=== PATIENT | female | born 1940 | race Caucasian/White ===

== ENCOUNTER 2016-09-22 15:36 | Inpatient (IN) ==
[2016-09-22] MEDS ORDERED: *HR* Dextrose 50 % in Water (Syg) 50 ML SYRINGE IVP PRN (16:20)
[2016-09-22] MEDS ORDERED: D5% in Water 1,000 ML IV PRN (16:20)
[2016-09-22] MEDS ORDERED: Dextrose Gel 15 GM PO PRN ×2 (16:20)
--- NOTE | 2016-09-22 16:21 | Internal Med History&Physical ---
Date of Encounter: 09/22/16 Time of Encounter: 16:19 Assessment and Plan (1) CVA (cerebral vascular accident) Current visit: Yes Status: Acute Patient subsequently had a CVA. Qualifiers: Qualified Code(s): I63.9 - Cerebral infarction, unspecified (2) Total knee replacement status Current visit: Yes Status: Acute Patient had a right total knee replacement for osteoarthritis Qualifiers: Laterality: right Qualified Code(s): Z96.651 - Presence of right artificial knee joint Internal Medicine - H&P: HPI Chief complaint: Patient had a right total knee replacement and then apparently a CVA. So s Admitted From: Hospital to Hospital Transfer Plans for Post Hospital Care: Home History of present illness: Ms. Bartholomew is a 76 year old female Patient's here for total knee replacement along with recent CVA. Past Med Surg Social Fam HX - Past Medical History Medical history: arthritis, CVA, diabetes, hypertension, other Psychiatric history: no psych history - Past Surgical History Surgical History: hysterectomy, knee replacement - Social History Smoking Status: Never smoker Alcohol use: none Internal Medicine - H&P: Meds Amlodipine [Norvasc] 5 mg PO DAILY 09/22/16 [History] Aspirin 325 mg PO DAILY 09/22/16 [History] Desvenlafaxine Succinate [Pristiq ER] 50 mg PO DAILY 09/22/16 [History] Fenofibrate [Lofibra] 160 mg PO DAILY 09/22/16 [History] GlipiZIDE [Glucotrol] 5 mg PO HS 09/22/16 [History] GlipiZIDE [Glucotrol] 10 mg PO 0800 09/22/16 [History] Insulin DETEMIR [Levemir] 30 unit SQ HS 09/22/16 [History] Lisinopril [Zestril] 10 mg PO DAILY 09/22/16 [History] Metformin [Glucophage] 500 mg PO BIDWM 09/22/16 [History] OxyCODONE/APAP 7.5/325 [Percocet 7.5/325 MG] 1 each PO Q4HR PRN 09/22/16 [ History] Polyethylene Glycol 3350 [MiraLAX Powder Bulk 17.9 Oz] 17 gm PO DAILY 09/22/16 [ History] Potassium Chloride [Klor-Con 10] 10 meq PO BID 09/22/16 [History] Sennosides/Docusate Sodium [Senna Plus] 2 each PO DAILY 09/22/16 [History] Simvastatin [Zocor] 20 mg PO HS 09/22/16 [History] Allergies Sulfa (Sulfonamide Antibiotics) Allergy (Verified 09/22/16 16:17) Rash All Systems PM: A 10-system review of systems was performed and is negative for pertinent findings except as documented above in the HPI. - Constitutional Vitals: Temp Pulse Resp BP Pulse Ox 97.1 F L 70 16 179/69 91 L 09/22/16 15:52 09/22/16 15:52 09/22/16 15:52 09/22/16 15:52 09/22/16 15:52 - Head Head exam: Present: atraumatic, normal inspection, normocephalic - Neck Neck exam general surgery: Present: supple, trachea midline. Absent: lymphadenopathy - Respiratory Respiratory exam: Present: CTAB. Absent: accessory muscle use, rales, rhonchi, wheezes - Cardiovascular Cardiovascular exam: Present: RRR, +S1, +S2. Absent: diastolic murmur, gallop, rubs, systolic murmur Internal Med - H&P Results - Labs Labs: Pending
[2016-09-22] MEDS: *HR* OxyCODONE/APAP 7.5/325 TABLET PO PRN ×2 (17:25→21:30)
[2016-09-22] MEDS: *HR* Metformin 500 MG TABLET PO SCH (17:25)
[2016-09-22] MEDS: Insulin LISPRO 300 UNITS/3 ML VIAL SQ SCH ×2 (17:26→21:28)
[2016-09-22] MEDS ORDERED: NON-FORMULARY MEDICATION 1 EACH EACH (Insulin Detemir 30 UNIT) SQ SCH (21:00)
[2016-09-22] MEDS ORDERED: Insulin DETEMIR 100 UNIT/ML per UNIT SQ ONE (21:00)
[2016-09-22] MEDS: *HR* GlipiZIDE 5 MG TABLET PO SCH (21:28)
[2016-09-23] MEDS: *HR* OxyCODONE/APAP 7.5/325 TABLET PO PRN ×5 (02:27→20:39)
[2016-09-23 05:34] LABS: INR 1.3; Prothrombin Time 13.7 Seconds (9.4-12.1)
[2016-09-23 05:36] LABS: Basophils % 0.4 %; Eosinophils # 0.7 K/mcL (0.0-0.6); Eosinophils % 7.5 %; Hematocrit 26.8 % (35.3-44.9); Hemoglobin 8.3 g/dL (11.5-15.4); Immature Granulocytes % 0.8 % (0-4); Lymphocytes # 1.9 K/mcL (0.6-4.6); Lymphocytes % 19.9 %; Mean Corpuscular Hemoglobin 27.4 pg (28.0-33.3); Mean Corpuscular Volume 88.4 fL (83.0-100.0); Mean Platelet Volume 8.8 fL (9.4-12.4); Monocytes # 0.7 K/mcL (0.0-1.3); Monocytes % 7.4 %; Neutrophils # 6.2 K/mcL (1.6-8.9); Platelet Count 431 K/mcL (140-400); Red Blood Count 3.03 M/mcL (3.82-4.97); Red Cell Distribution Width 13.2 % (11.5-14.5)
[2016-09-23 05:46] LABS: BUN/Creatinine Ratio 21 (6-26); Blood Urea Nitrogen 18 mg/dL (7-20); Carbon Dioxide 25 mEq/L (19-29); Chloride 104 mEq/L (98-109); Glucose 128 mg/dL (70-99); Osmolality,Calculated 292 (280-300); Potassium 4.2 mEq/L (3.5-4.5); Sodium 139 mEq/L (136-145); eGFR For African Americans > 60 (> 60); eGFR For Non-African Americans > 60 (> 60)
[2016-09-23] MEDS: Ondansetron ODT 4 MG TAB.RAPDIS SL PRN (08:27)
[2016-09-23] MEDS: Insulin LISPRO 300 UNITS/3 ML VIAL SQ SCH ×4 (08:29→21:28)
[2016-09-23] MEDS: *HR* Metformin 500 MG TABLET PO SCH ×2 (09:51→17:55)
[2016-09-23] MEDS: *HR* GlipiZIDE 5 MG TABLET PO SCH ×2 (09:51→20:39)
[2016-09-23] MEDS: Sennosides/Docusate Sodium TABLET PO SCH (09:51)
[2016-09-23] MEDS: Fenofibrate 54 MG TABLET PO SCH (09:51)
[2016-09-23] MEDS: Aspirin 325 MG TABLET PO SCH (09:51)
[2016-09-23] MEDS: (Desvenlafaxine Succinate [Pristiq] 50 MG) PO SCH (09:52)
[2016-09-23] MEDS: Polyethylene Glycol 3350 255 GM POWDER PO SCH (09:53)
--- NOTE | 2016-09-23 11:30 | Internal Med Progress Note ---
Date of Encounter: 09/23/16 Time of Encounter: 11:28 - Assessment and plan (1) CVA (cerebral vascular accident) Current Visit: Yes Status: Acute Assessment and plan: Residual generalized weakness with right facial droop. PTOT to work on improving balance, gait, transfer and ADL. Qualifiers: CVA mechanism: unspecified Qualified Code(s): I63.9 - Cerebral infarction, unspecified (2) Diabetes Current Visit: Yes Status: Acute Assessment and plan: Accu-Chek 148 today. Qualifiers: Diabetes mellitus type: type 2 Diabetes mellitus complication status: with circulatory complication Diabetes mellitus complication detail: with other circulatory complications Diabetes mellitus buttermaker helper insulin use: with buttermaker helper use Qualified Code(s): E11.59 - Type 2 diabetes mellitus with other circulatory complications; Z79.4 - buttermaker helper (current) use of insulin - Time Spent With Patient less than 15 minutes - Subjective Interval history: Still complains of generalized weakness. Complains of nausea earlier. Zofran given. Complains of constipation. Requesting Mag citrait. - Constitutional Vitals: Temp Pulse Resp BP Pulse Ox 97.6 F 75 18 135/80 91 L 09/23/16 06:54 09/23/16 06:54 09/23/16 06:54 09/23/16 06:54 09/23/16 06:54 General appearance: Present: A&O X 2, pleasant, no acute distress - Respiratory Respiratory exam: Present: CTAB. Absent: accessory muscle use, rales, rhonchi, wheezes - Cardiovascular Cardiovascular exam: Present: RRR, +S1, +S2. Absent: diastolic murmur, gallop, rubs, systolic murmur - GI/Abdominal GI/Abdominal exam: Present: normal bowel sounds, soft, no peritoneal signs. Absent: distended, tenderness - Extremities Exam Extremities exam: Present: warm, radial pulses palpable and symetrical. Absent : calf tenderness, cyanotic, pedal edema - Neurological Exam Neurological exam: Present: facial droop. Absent: CN II-XII intact - Skin Skin exam: Present: dry, intact Internal Medicine: Result - Labs CBC & Chem 7: 09/23/16 05:20 09/23/16 05:20 Labs: Short CBC 09/23/16 Range/Units 05:20 WBC 9.8 (4.3-11.1) K/mcL Hgb 8.3 L (11.5-15.4) g/dL Hct 26.8 L (35.3-44.9) % Plt Count 431 H (140-400) K/mcL Neutrophils # 6.2 (1.6-8.9) K/mcL BMP 09/23/16 05:20 Sodium 139 Potassium 4.2 Chloride 104 Carbon Dioxide 25 BUN 18 Creatinine 0.86 Glucose 128 H Calcium 9.0 - ABG Interpretation ABG results: PT/INR, D-dimer PT 13.7 Seconds (9.4-12.1) H 09/23/16 05:20 - VTE Documentation of Mechanical Device: Graduated compression elastic hosiery Consult Discharge Plan - Plan Referrals: Ashly Cho MD [Primary Care Provider] -
[2016-09-23] MEDS: Insulin DETEMIR 100 UNIT/ML X5UNITS SQ SCH (20:39)
--- NOTE | 2016-09-24 01:46 | Internal Med Progress Note ---
Date of Encounter: 09/24/16 Time of Encounter: 09:02 - Assessment and plan (1) CVA (cerebral vascular accident) Current Visit: Yes Status: Acute Assessment and plan: Residual generalized weakness with right facial droop. PTOT to work on improving balance, gait, transfer and ADL. Qualifiers: CVA mechanism: unspecified Qualified Code(s): I63.9 - Cerebral infarction, unspecified (2) Diabetes Current Visit: Yes Status: Chronic Assessment and plan: Accu-Chek 130today. Qualifiers: Diabetes mellitus type: type 2 Diabetes mellitus complication status: with circulatory complication Diabetes mellitus complication detail: with other circulatory complications Diabetes mellitus shelter insulin use: with shelter use Qualified Code(s): E11.59 - Type 2 diabetes mellitus with other circulatory complications; Z79.4 - longterm (current) use of insulin - Time Spent With Patient less than 15 minutes - Subjective Interval history: Still complains of generalized weakness. His slightly better today. Had good result with mag site trait. Large bowel movement after. - Constitutional Vitals: Temp Pulse Resp BP Pulse Ox 97.9 F 84 18 144/63 94 L 09/23/16 18:42 09/23/16 18:42 09/23/16 18:42 09/23/16 18:42 09/23/16 18:42 General appearance: Present: A&O X 2, pleasant, no acute distress - Respiratory Respiratory exam: Present: CTAB. Absent: accessory muscle use, rales, rhonchi, wheezes - Cardiovascular Cardiovascular exam: Present: RRR, +S1, +S2. Absent: diastolic murmur, gallop, rubs, systolic murmur - GI/Abdominal GI/Abdominal exam: Present: normal bowel sounds, soft, no peritoneal signs. Absent: distended, tenderness - Extremities Exam Extremities exam: Present: warm, radial pulses palpable and symetrical. Absent : calf tenderness, cyanotic, pedal edema Internal Medicine: Result - Labs CBC & Chem 7: 09/23/16 05:20 09/23/16 05:20 Labs: Short CBC 09/23/16 Range/Units 05:20 WBC 9.8 (4.3-11.1) K/mcL Hgb 8.3 L (11.5-15.4) g/dL Hct 26.8 L (35.3-44.9) % Plt Count 431 H (140-400) K/mcL Neutrophils # 6.2 (1.6-8.9) K/mcL BMP 09/23/16 05:20 Sodium 139 Potassium 4.2 Chloride 104 Carbon Dioxide 25 BUN 18 Creatinine 0.86 Glucose 128 H Calcium 9.0 - ABG Interpretation ABG results: PT/INR, D-dimer PT 13.7 Seconds (9.4-12.1) H 09/23/16 05:20 - VTE Documentation of Mechanical Device: Graduated compression elastic hosiery Consult Discharge Plan - Plan Referrals: Ashly Cho MD [Primary Care Provider] -
[2016-09-24] MEDS: *HR* OxyCODONE/APAP 7.5/325 TABLET PO PRN ×5 (04:57→21:51)
[2016-09-24] MEDS: Fenofibrate 54 MG TABLET PO SCH (09:00)
[2016-09-24] MEDS: Sennosides/Docusate Sodium TABLET PO SCH (09:00)
[2016-09-24] MEDS: *HR* GlipiZIDE 5 MG TABLET PO SCH ×2 (09:00→21:16)
[2016-09-24] MEDS: *HR* Metformin 500 MG TABLET PO SCH ×2 (09:00→17:43)
[2016-09-24] MEDS: Aspirin 325 MG TABLET PO SCH (09:00)
[2016-09-24] MEDS: Insulin LISPRO 300 UNITS/3 ML VIAL SQ SCH ×4 (09:01→21:00)
[2016-09-24] MEDS: (Desvenlafaxine Succinate [Pristiq] 50 MG) PO SCH (09:01)
[2016-09-24] MEDS: Polyethylene Glycol 3350 255 GM POWDER PO SCH (09:02)
[2016-09-24] MEDS: Insulin DETEMIR 100 UNIT/ML X5UNITS SQ SCH (21:17)
[2016-09-25] MEDS: *HR* OxyCODONE/APAP 7.5/325 TABLET PO PRN ×5 (01:47→20:34)
[2016-09-25 05:46] LABS: Basophils # 0.1 K/mcL (0.0-0.2); Basophils % 0.6 %; Eosinophils # 0.7 K/mcL (0.0-0.6); Eosinophils % 6.1 %; Hemoglobin 8.5 g/dL (11.5-15.4); Immature Granulocytes % 0.6 % (0-4); Lymphocytes # 2.5 K/mcL (0.6-4.6); Lymphocytes % 23.3 %; Mean Corpuscular HGB Conc 31.5 g/dL (31.6-35.5); Mean Corpuscular Hemoglobin 27.9 pg (28.0-33.3); Mean Corpuscular Volume 88.5 fL (83.0-100.0); Mean Platelet Volume 8.9 fL (9.4-12.4); Monocytes # 0.8 K/mcL (0.0-1.3); Monocytes % 7.5 %; Neutrophils # 6.7 K/mcL (1.6-8.9); Platelet Count 444 K/mcL (140-400); Red Blood Count 3.05 M/mcL (3.82-4.97); Red Cell Distribution Width 14.2 % (11.5-14.5); Segmented Neutrophils % 61.9 %
[2016-09-25 05:56] LABS: BUN/Creatinine Ratio 22 (6-26); Blood Urea Nitrogen 19 mg/dL (7-20); Calcium 9.4 mg/dL (8.6-10.8); Carbon Dioxide 26 mEq/L (19-29); Chloride 104 mEq/L (98-109); Glucose 119 mg/dL (70-99); Osmolality,Calculated 291 (280-300); Sodium 139 mEq/L (136-145); eGFR For African Americans > 60 (> 60); eGFR For Non-African Americans > 60 (> 60)
[2016-09-25] MEDS: Fenofibrate 54 MG TABLET PO SCH (08:17)
[2016-09-25] MEDS: *HR* Metformin 500 MG TABLET PO SCH ×2 (08:18→16:57)
[2016-09-25] MEDS: Sennosides/Docusate Sodium TABLET PO SCH (08:18)
[2016-09-25] MEDS: Aspirin 325 MG TABLET PO SCH (08:18)
[2016-09-25] MEDS: *HR* GlipiZIDE 5 MG TABLET PO SCH ×2 (08:18→20:34)
[2016-09-25] MEDS: Polyethylene Glycol 3350 255 GM POWDER PO SCH (08:19)
[2016-09-25] MEDS: (Desvenlafaxine Succinate [Pristiq] 50 MG) PO SCH (08:19)
[2016-09-25] MEDS: Insulin LISPRO 300 UNITS/3 ML VIAL SQ SCH ×4 (08:19→20:22)
[2016-09-25] MEDS: Ondansetron ODT 4 MG TAB.RAPDIS SL PRN (09:51)
--- NOTE | 2016-09-25 13:30 | Internal Med Progress Note ---
Date of Encounter: 09/25/16 Time of Encounter: 14:00 - Assessment and plan (1) CVA (cerebral vascular accident) Current Visit: Yes Status: Acute Assessment and plan: Patient will be working with all modalities of rehabilitation Qualifiers: CVA mechanism: unspecified Qualified Code(s): I63.9 - Cerebral infarction, unspecified (2) Total knee replacement status Current Visit: Yes Status: Acute Assessment and plan: Staff is working on the total knee replacement issue Qualifiers: Laterality: right Qualified Code(s): Z96.651 - Presence of right artificial knee joint - Time Spent With Patient less than 15 minutes - Subjective Interval history: Right now everything is a struggle. The patient has her total knee replacement compounded by CVA postop. It is making great effort just to stay and then transfer to a wheelchair. CPT O DTR note - Constitutional Vitals: Temp Pulse Resp BP Pulse Ox 98.8 F 67 16 131/88 93 L 09/25/16 07:12 09/25/16 07:12 09/25/16 07:12 09/25/16 07:12 09/25/16 07:12 General appearance: Present: A&O X 2, pleasant, no acute distress - Head Head exam: Present: atraumatic, normal inspection, normocephalic - Neck Neck exam general surgery: Present: supple, trachea midline. Absent: lymphadenopathy - Respiratory Respiratory exam: Present: CTAB. Absent: accessory muscle use, rales, rhonchi, wheezes - Cardiovascular Cardiovascular exam: Present: RRR, +S1, +S2. Absent: diastolic murmur, gallop, rubs, systolic murmur Internal Medicine: Result - Labs CBC & Chem 7: 09/25/16 05:30 09/25/16 05:30 Labs: Short CBC 09/25/16 Range/Units 05:30 WBC 10.9 (4.3-11.1) K/mcL Hgb 8.5 L (11.5-15.4) g/dL Hct 27.0 L (35.3-44.9) % Plt Count 444 H (140-400) K/mcL Neutrophils # 6.7 (1.6-8.9) K/mcL BMP 09/25/16 05:30 Sodium 139 Potassium 5.0 H Chloride 104 Carbon Dioxide 26 BUN 19 Creatinine 0.88 Glucose 119 H Calcium 9.4 Lab looks good I have to watch the potassium. - ABG Interpretation ABG results: PT/INR, D-dimer PT 13.7 Seconds (9.4-12.1) H 09/23/16 05:20 - VTE Documentation of Mechanical Device: Graduated compression elastic hosiery Consult Discharge Plan - Plan Referrals: Ashly Cho MD [Primary Care Provider] -
[2016-09-25] MEDS: Insulin DETEMIR 100 UNIT/ML X5UNITS SQ SCH (20:34)
[2016-09-26] MEDS: *HR* OxyCODONE/APAP 7.5/325 TABLET PO PRN ×4 (01:56→22:02)
[2016-09-26] MEDS: Insulin LISPRO 300 UNITS/3 ML VIAL SQ SCH ×4 (07:23→22:01)
[2016-09-26] MEDS: Fenofibrate 54 MG TABLET PO SCH (08:22)
[2016-09-26] MEDS: (Desvenlafaxine Succinate [Pristiq] 50 MG) PO SCH (08:22)
[2016-09-26] MEDS: *HR* Metformin 500 MG TABLET PO SCH ×2 (08:22→17:26)
[2016-09-26] MEDS: Aspirin 325 MG TABLET PO SCH (08:22)
[2016-09-26] MEDS: Ondansetron ODT 4 MG TAB.RAPDIS SL PRN (08:22)
[2016-09-26] MEDS: Sennosides/Docusate Sodium TABLET PO SCH (08:22)
[2016-09-26] MEDS: *HR* GlipiZIDE 5 MG TABLET PO SCH ×2 (08:22→22:01)
[2016-09-26] MEDS: Insulin DETEMIR 100 UNIT/ML X5UNITS SQ SCH (22:02)
[2016-09-27] MEDS: *HR* OxyCODONE/APAP 7.5/325 TABLET PO PRN ×3 (04:07→20:34)
[2016-09-27 05:47] LABS: BUN/Creatinine Ratio 25 (6-26); Blood Urea Nitrogen 24 mg/dL (7-20); Calcium 9.2 mg/dL (8.6-10.8); Carbon Dioxide 28 mEq/L (19-29); Chloride 103 mEq/L (98-109); Glucose 99 mg/dL (70-99); Osmolality,Calculated 292 (280-300); Potassium 4.5 mEq/L (3.5-4.5); Sodium 139 mEq/L (136-145); eGFR For African Americans > 60 (> 60); eGFR For Non-African Americans 58 (> 60)
--- NOTE | 2016-09-27 08:28 | Internal Med Progress Note ---
Date of Encounter: 09/27/16 Time of Encounter: 08:26 - Assessment and plan (1) CVA (cerebral vascular accident) Current Visit: Yes Status: Acute Assessment and plan: PT OT working on improving independent ADL. Patient showing some improvement in motivation for participation but not consistent. Strengthening, coordination , balance in transfer progressing .Patient will be working with all modalities of rehabilitation Qualifiers: CVA mechanism: unspecified Qualified Code(s): I63.9 - Cerebral infarction, unspecified (2) Diabetes Current Visit: Yes Status: Chronic Qualifiers: Diabetes mellitus type: type 2 Diabetes mellitus complication status: with circulatory complication Diabetes mellitus complication detail: with other circulatory complications Diabetes mellitus terminal operations supervisor insulin use: with terminal operations supervisor use Qualified Code(s): E11.59 - Type 2 diabetes mellitus with other circulatory complications; Z79.4 - terminal operations supervisor (current) use of insulin - Subjective Interval history: Still complains of generalized weakness. feels slightly better today. No shortness of breath. No chest pain. Had good result with mag site trait. Large bowel movement after. - Constitutional Vitals: Temp Pulse Resp BP Pulse Ox 98.0 F 68 17 137/68 90 L 09/27/16 07:03 09/27/16 07:03 09/27/16 07:03 09/27/16 07:03 09/27/16 07:03 General appearance: Present: A&O X 2, pleasant, no acute distress - Respiratory Respiratory exam: Present: CTAB. Absent: accessory muscle use, rales, rhonchi, wheezes - Cardiovascular Cardiovascular exam: Present: RRR, +S1, +S2. Absent: diastolic murmur, gallop, rubs, systolic murmur - GI/Abdominal GI/Abdominal exam: Present: normal bowel sounds, soft, no peritoneal signs. Absent: distended, tenderness - Extremities Exam Extremities exam: Present: warm, radial pulses palpable and symetrical. Absent : calf tenderness, cyanotic, pedal edema - Neurological Exam Neurological exam: Present: oriented X3. Absent: pronater drift, facial droop Internal Medicine: Result - Labs CBC & Chem 7: 09/25/16 05:30 09/27/16 05:00 Labs: BMP 09/27/16 05:00 Sodium 139 Potassium 4.5 Chloride 103 Carbon Dioxide 28 BUN 24 H Creatinine 0.95 Glucose 99 Calcium 9.2 - ABG Interpretation ABG results: PT/INR, D-dimer PT 13.7 Seconds (9.4-12.1) H 09/23/16 05:20 - Impressions Impressions Ribs X-Ray 09/26/16 11:44 IMPRESSION: Unremarkable appearing right ribs D/ / Kristopher Schwarz MD / Kristopher Schwarz MD Interpreting Provider: Kristopher Schwarz MD - VTE Documentation of Mechanical Device: Graduated compression elastic hosiery Consult Discharge Plan - Plan Referrals: Ashly Cho MD [Primary Care Provider] -
[2016-09-27] MEDS: Ondansetron ODT 4 MG TAB.RAPDIS SL PRN (08:44)
[2016-09-27] MEDS: Aspirin 325 MG TABLET PO SCH (08:44)
[2016-09-27] MEDS: Sennosides/Docusate Sodium TABLET PO SCH (08:45)
[2016-09-27] MEDS: *HR* Metformin 500 MG TABLET PO SCH ×2 (08:45→18:11)
[2016-09-27] MEDS: Fenofibrate 54 MG TABLET PO SCH (08:46)
[2016-09-27] MEDS: *HR* GlipiZIDE 5 MG TABLET PO SCH ×2 (08:46→20:33)
[2016-09-27] MEDS: Insulin LISPRO 300 UNITS/3 ML VIAL SQ SCH ×4 (08:47→20:38)
[2016-09-27] MEDS: (Desvenlafaxine Succinate [Pristiq] 50 MG) PO SCH (08:52)
--- NOTE | 2016-09-27 15:25 | Psychological Evaluation ---
Date of Encounter: 09/27/16 Time of Encounter: 11:00 History of Present Illness History of present illness: Ms. Bartholomew is a 76 year old female admitted to [facility] for inpatient rehab following a left total knee replacement. Ms. Bartholomew sustained a CVA post-op. She was seen on this date to assess her current emotional functioning as she has presented as highly anxious during treatment. Past Medical History Medical history: Significant for HTN, diabetes and arthritis. - Psychiatric History Additional Psychiatric History: Ms. Bartholomew denied a history of psychiatric hospitalization or mental health counseling. She reported, however, that she has been under the care of her primary care physician for treatment of anxiety and depression. She was prescribed Pristiq but stopped taking this medication a few months ago because of the expense. There is no known family history of psychiatric or mental health issues. Home Medications and Allergies Amlodipine [Norvasc] 5 mg PO DAILY 09/22/16 [History] Aspirin 325 mg PO DAILY 09/22/16 [History] Desvenlafaxine Succinate [Pristiq ER] 50 mg PO DAILY 09/22/16 [History] Fenofibrate [Lofibra] 160 mg PO DAILY 09/22/16 [History] GlipiZIDE [Glucotrol] 5 mg PO HS 09/22/16 [History] GlipiZIDE [Glucotrol] 10 mg PO 0800 09/22/16 [History] Insulin DETEMIR [Levemir] 30 unit SQ HS 09/22/16 [History] Lisinopril [Zestril] 10 mg PO DAILY 09/22/16 [History] Metformin [Glucophage] 500 mg PO BIDWM 09/22/16 [History] OxyCODONE/APAP 7.5/325 [Percocet 7.5/325 MG] 1 each PO Q4HR PRN 09/22/16 [ History] Polyethylene Glycol 3350 [MiraLAX Powder Bulk 17.9 Oz] 17 gm PO DAILY 09/22/16 [ History] Potassium Chloride [Klor-Con 10] 10 meq PO BID 09/22/16 [History] Sennosides/Docusate Sodium [Senna Plus] 2 each PO DAILY 09/22/16 [History] Simvastatin [Zocor] 20 mg PO HS 09/22/16 [History] Allergies Sulfa (Sulfonamide Antibiotics) Allergy (Verified 09/22/16 16:17) Rash Social History - Social History Social History: Ms. Bartholomew has been to her third for 34 years. She had 3 children (2 daughters and one son) but reported that her youngest daughter October 2002 from acute pancreatitis. 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 She reported that she is active in her moravian and involved in various volunteer activities and quilting. She spends her typical day doing stave block roller and caring for her 2-year-old great grandson. - Tobacco Use Smoking Status: Never smoker - Alcohol Use Alcohol Use: none Cognitive/Emotional Assessment - Cognitive Ability Additional Findings: Ms. Bartholomew was alert, attentive and oriented for person and place. She was able to provide the correct month and date but stated it was "1916". When her response was repeated and she was questioned if this is correct, she stated "yes " and did not self-correct. She was able to maintain attention to complete this interview but was somewhat drowsy at the beginning as she had just taken her pain medication. Speech was muffled and somewhat "scratchy" but fluent and intelligible. Thought processes were logical, coherent and goal-directed. She was able to provide a complete, cogent medical history and her memory for recent events appeared within normal limits. - Emotional Status Additional Findings: Ms. Bartholomew was pleasant, friendly and cooperative. Mood was somber/sad. She described feeling "really down" and was tearful as she spoke of her frustrations and fear of being discharged too early. Ms. Bartholomew also reported feeling overwhelmed and "exhausted". She noted that she had not expected to go in for a simple knee replacement and suffer a stroke. She reported that she is "trying my best" but feels "pushed" by rehab staff to get better more quickly or run the risk of being discharged. We spent time reviewing the process of recovery from stroke and from a knee replacement. Also talked about meeting her needs and what she perceives as a barrier to rehab. She would like to be given "a chance or time" to start and finish tasks without feeling rushed/ pushed. Her body is not moving/functioning in the same manner post-cva. Assessment & Plan - Diagnosis (1) Major depressive disorder, recurrent episode, mild with anxious distress - Treatment Plan Treatment Plan/Recommendations: Will provide individual supportive therapy to address emotional adjustment issues and feelings of depression/anxiety while Ms. Bartholomew is a patient at [facility]. Procedures - Intervention Interventions: Supportive Counseling - Session Time Session Start Time: 11:00 Session Stop Time: 11:30
--- NOTE | 2016-09-27 15:35 | Physcial Medicine-Consult Note ---
Date of Encounter: 09/27/16 Time of Encounter: 15:32 Physical Medicine - AP (1) CVA (cerebral vascular accident) Status: Acute Assessment and plan: 1. Ms. Bartholomew has diminished endurance which interferes with her ability to tolerate acute rehab at this time. She requires max A for transfers with a slide board. She suffers from frustration and depression due to her cva following her knee replacement. We will move her to the skilled level in order to provide continued PT/OT/TR/ST at a slower pace. Code(s): I63.9 - Cerebral infarction, unspecified SNOMED Code(s): 511244877 (2) Total knee replacement status Status: Acute Assessment and plan: 1. She will continue with PT/OT/TR to address ROM and strengthening as tolerated. Code(s): Z96.659 - Presence of unspecified artificial knee joint SNOMED Code(s ): 0202332704640 Physical Medicine - HPI - Data of Consult Requesting Physician: Devendra Vigil DO Primary Care Provider: Ashly Cho MD - Consult Narrative Reason for consult: cva History of present illness: Ms. Bartholomew is a 76 year old female who underwent a right total knee arthroplasty and sustained an intraoperative CVA. MRI revealed a possible watershed infarct. There were no documented hypotensive events during surgery. Patient developed confusion, dysarthria, right hemiplegia and right facial weakness. She was stabilized and transferred for inpatient rehabilitation. CC: Devendra Vigil DO Past Med Surg Social Fam - Past Medical History Medical history: arthritis, CVA, diabetes, hypertension, other Psychiatric history: no psych history - Past Surgical History Surgical History: hysterectomy, knee replacement - Social History Smoking Status: Never smoker Alcohol use: none Medications and Allergies Amlodipine [Norvasc] 5 mg PO DAILY 09/22/16 [History] Aspirin 325 mg PO DAILY 09/22/16 [History] Desvenlafaxine Succinate [Pristiq ER] 50 mg PO DAILY 09/22/16 [History] Fenofibrate [Lofibra] 160 mg PO DAILY 09/22/16 [History] GlipiZIDE [Glucotrol] 5 mg PO HS 09/22/16 [History] GlipiZIDE [Glucotrol] 10 mg PO 0800 09/22/16 [History] Insulin DETEMIR [Levemir] 30 unit SQ HS 09/22/16 [History] Lisinopril [Zestril] 10 mg PO DAILY 09/22/16 [History] Metformin [Glucophage] 500 mg PO BIDWM 09/22/16 [History] OxyCODONE/APAP 7.5/325 [Percocet 7.5/325 MG] 1 each PO Q4HR PRN 09/22/16 [ History] Polyethylene Glycol 3350 [MiraLAX Powder Bulk 17.9 Oz] 17 gm PO DAILY 09/22/16 [ History] Potassium Chloride [Klor-Con 10] 10 meq PO BID 09/22/16 [History] Sennosides/Docusate Sodium [Senna Plus] 2 each PO DAILY 09/22/16 [History] Simvastatin [Zocor] 20 mg PO HS 09/22/16 [History] Allergies Sulfa (Sulfonamide Antibiotics) Allergy (Verified 09/22/16 16:17) Rash - Constitutional Constitutional: Present: fatigue - Cardiovascular Cardiovascular: Absent: chest pain, dyspnea - Respiratory Respiratory: Absent: dyspnea - Gastrointestinal Gastrointestinal: Absent: abdominal pain - Genitourinary Genitourinary: Absent: urinary incontinence - Musculoskeletal Musculoskeletal: Present: arthralgias, back pain, muscle weakness, neck pain - Neurological Neurological: Present: confusion, weakness - Psychiatric Psychiatric: Present: depression Physical Medicine - Exam - Constitutional Vitals: Temp Pulse Resp BP Pulse Ox 98.0 F 68 17 137/68 90 L 09/27/16 07:03 09/27/16 07:03 09/27/16 07:03 09/27/16 07:03 09/27/16 07:03 Exam: Patient is lying in bed in no distress. She answers questions appropriately. Able to follow multistep commands. - Head Additional comments: Mild right facial droop. Extraocular muscles intact. - Respiratory Respiratory exam: Present: CTAB - Cardiovascular Cardiovascular exam: Present: RRR - GI/Abdominal GI/Abdominal exam: Present: normal bowel sounds, soft. Absent: tenderness - Extremities Exam Additional comments: Reflexes are absent in the bilateral upper and lower limbs. Motor strength is 5 /5 in the left upper limb. Right upper limb motor strength is 5/5 with the exception of right EE 4/5, WE 4+/5, HI 4/5. Right lower limb motor strength is grossly 4/5. Left DF/PF 5/5-patient declined further motor testing due to pain from her TKA. Left lower limb with dressing in place. No calf pain, no erythema or edema. Physical Medicine - Results - Labs CBC & Chem 7: 09/25/16 05:30 09/27/16 05:00 Labs: BMP 09/27/16 05:00 Sodium 139 Potassium 4.5 Chloride 103 Carbon Dioxide 28 BUN 24 H Creatinine 0.95 Glucose 99 Calcium 9.2 - Impressions ITS Impressions Ribs X-Ray 09/26/16 11:44 IMPRESSION: Unremarkable appearing right ribs D/ / Kristopher Schwarz MD / Kristopher Schwarz MD Interpreting Provider: Kristopher Schwarz MD Consult Discharge Plan - Plan Referrals: Ashly Cho MD [Primary Care Provider] -
[2016-09-27] MEDS: Insulin DETEMIR 100 UNIT/ML X5UNITS SQ SCH (20:33)
[2016-09-28] MEDS: *HR* OxyCODONE/APAP 7.5/325 TABLET PO PRN ×4 (06:43→21:48)
[2016-09-28] MEDS: Insulin LISPRO 300 UNITS/3 ML VIAL SQ SCH ×4 (07:44→21:47)
[2016-09-28] MEDS: *HR* GlipiZIDE 5 MG TABLET PO SCH ×2 (08:01→21:47)
[2016-09-28] MEDS: *HR* Metformin 500 MG TABLET PO SCH ×2 (08:01→16:44)
[2016-09-28] MEDS: Sennosides/Docusate Sodium TABLET PO SCH (08:02)
[2016-09-28] MEDS: Fenofibrate 54 MG TABLET PO SCH (08:02)
[2016-09-28] MEDS: Aspirin 325 MG TABLET PO SCH (08:02)
[2016-09-28] MEDS: (Desvenlafaxine Succinate [Pristiq] 50 MG) PO SCH (08:03)
--- NOTE | 2016-09-28 13:26 | Internal Med Progress Note ---
Date of Encounter: 09/28/16 Time of Encounter: 13:00 - Assessment and plan (1) CVA (cerebral vascular accident) Current Visit: Yes Status: Acute Assessment and plan: apparently had a postop CVA. Qualifiers: CVA mechanism: unspecified Qualified Code(s): I63.9 - Cerebral infarction, unspecified (2) Total knee replacement status Current Visit: Yes Status: Acute Assessment and plan: Patient had a scheduled total knee replacement for osteoarthritis Qualifiers: Laterality: right Qualified Code(s): Z96.651 - Presence of right artificial knee joint - Time Spent With Patient less than 15 minutes - Subjective Interval history: The last 2 days patient is improved considerably. Patient's more cooperative moving herself better. C PTOT and ER notes - Constitutional Vitals: Temp Pulse Resp BP Pulse Ox 97.9 F 77 18 131/65 92 L 09/28/16 06:54 09/28/16 06:54 09/28/16 06:54 09/28/16 06:54 09/28/16 06:54 General appearance: Present: A&O X 2, pleasant, no acute distress - Head Head exam: Present: atraumatic, normal inspection, normocephalic - Neck Neck exam general surgery: Present: supple, trachea midline. Absent: lymphadenopathy - Respiratory Respiratory exam: Present: CTAB. Absent: accessory muscle use, rales, rhonchi, wheezes - Cardiovascular Cardiovascular exam: Present: RRR, +S1, +S2. Absent: diastolic murmur, gallop, rubs, systolic murmur Internal Medicine: Result - Labs CBC & Chem 7: 09/25/16 05:30 09/27/16 05:00 Labs: Lab appears to be stable - ABG Interpretation ABG results: PT/INR, D-dimer PT 13.7 Seconds (9.4-12.1) H 09/23/16 05:20 - VTE Documentation of Mechanical Device: Graduated compression elastic hosiery Consult Discharge Plan - Plan Referrals: Ashly Cho MD [Primary Care Provider] -
[2016-09-28] MEDS: Insulin DETEMIR 100 UNIT/ML X5UNITS SQ SCH (21:47)
[2016-09-29] MEDS: *HR* OxyCODONE/APAP 7.5/325 TABLET PO PRN ×4 (01:48→21:15)
[2016-09-29] MEDS: *HR* GlipiZIDE 5 MG TABLET PO SCH ×2 (07:52→21:15)
[2016-09-29] MEDS: Aspirin 325 MG TABLET PO SCH (07:52)
[2016-09-29] MEDS: Fenofibrate 54 MG TABLET PO SCH (07:52)
[2016-09-29] MEDS: Sennosides/Docusate Sodium TABLET PO SCH (07:52)
[2016-09-29] MEDS: *HR* Metformin 500 MG TABLET PO SCH ×2 (07:53→17:57)
[2016-09-29] MEDS: Insulin LISPRO 300 UNITS/3 ML VIAL SQ SCH ×4 (07:54→21:15)
[2016-09-29] MEDS: (Desvenlafaxine Succinate [Pristiq] 50 MG) PO SCH (07:54)
--- NOTE | 2016-09-29 15:10 | Internal Med Progress Note ---
Date of Encounter: 09/29/16 Time of Encounter: 15:00 - Assessment and plan (1) CVA (cerebral vascular accident) Current Visit: Yes Status: Acute Assessment and plan: Patient is working with PT OT TR and speech. Qualifiers: CVA mechanism: unspecified Qualified Code(s): I63.9 - Cerebral infarction, unspecified (2) Total knee replacement status Current Visit: Yes Status: Acute Assessment and plan: Patient had a total knee replacement and then had a stroke or postop Qualifiers: Laterality: right Qualified Code(s): Z96.651 - Presence of right artificial knee joint - Time Spent With Patient less than 15 minutes - Subjective Interval history: Patient's working with therapist but complained bitterly of being very tired and very short time. She is not particularly motivated but she is allowing the therapist work with her - Constitutional Vitals: Temp Pulse Resp BP Pulse Ox 97.2 F L 75 18 138/64 91 L 09/29/16 07:45 09/29/16 07:45 09/29/16 07:45 09/29/16 07:45 09/29/16 07:45 General appearance: Present: A&O X 2, pleasant, no acute distress - Head Head exam: Present: atraumatic, normal inspection, normocephalic - Neck Neck exam general surgery: Present: supple, trachea midline. Absent: lymphadenopathy - Respiratory Respiratory exam: Present: CTAB. Absent: accessory muscle use, rales, rhonchi, wheezes - Cardiovascular Cardiovascular exam: Present: RRR, +S1, +S2. Absent: diastolic murmur, gallop, rubs, systolic murmur Internal Medicine: Result - Labs CBC & Chem 7: 09/25/16 05:30 09/27/16 05:00 Labs: Lab is stable - ABG Interpretation ABG results: PT/INR, D-dimer PT 13.7 Seconds (9.4-12.1) H 09/23/16 05:20 - VTE Documentation of Mechanical Device: Graduated compression elastic hosiery Consult Discharge Plan - Plan Referrals: Ashly Cho MD [Primary Care Provider] -
[2016-09-29] MEDS: Insulin DETEMIR 100 UNIT/ML X5UNITS SQ SCH (21:15)
--- NOTE | 2016-09-30 01:21 | Internal Med Progress Note ---
Date of Encounter: 09/30/16 Time of Encounter: 08:52 - Assessment and plan (1) CVA (cerebral vascular accident) Current Visit: Yes Status: Acute Assessment and plan: PT OT working on imprdoving ADL Qualifiers: CVA mechanism: unspecified Qualified Code(s): I63.9 - Cerebral infarction, unspecified (2) Diabetes Current Visit: Yes Status: Chronic Qualifiers: Diabetes mellitus type: type 2 Diabetes mellitus complication status: with circulatory complication Diabetes mellitus complication detail: with other circulatory complications Diabetes mellitus skilled nursing insulin use: with terminal clerk use Qualified Code(s): E11.59 - Type 2 diabetes mellitus with other circulatory complications; Z79.4 - [facility] (current) use of insulin - Time Spent With Patient less than 15 minutes - Subjective Interval history: Complains of mild postop pain on the knee after walking around to the bathroom. Still complains of generalized weakness. feels slightly better today. No shortness of breath. No chest pain. Had good result with mag site trait. Large bowel movement after. - Constitutional Vitals: Temp Pulse Resp BP Pulse Ox 98.2 F 74 16 119/60 92 L 09/29/16 18:34 09/29/16 18:34 09/29/16 18:34 09/29/16 18:34 09/29/16 18:34 General appearance: Present: A&O X 2, pleasant, no acute distress - Respiratory Respiratory exam: Present: CTAB. Absent: accessory muscle use, rales, rhonchi, wheezes - Cardiovascular Cardiovascular exam: Present: RRR, +S1, +S2. Absent: diastolic murmur, gallop, rubs, systolic murmur - GI/Abdominal GI/Abdominal exam: Present: normal bowel sounds, soft, no peritoneal signs. Absent: distended, tenderness - Expanded Lower Extremities Exam Knee exam: Present: swelling, tenderness - Incison Incision: Present: clean and dry Internal Medicine: Result - Labs CBC & Chem 7: 09/25/16 05:30 09/27/16 05:00 - ABG Interpretation ABG results: PT/INR, D-dimer PT 13.7 Seconds (9.4-12.1) H 09/23/16 05:20 - VTE Documentation of Mechanical Device: Graduated compression elastic hosiery Consult Discharge Plan - Plan Referrals: Ashly Cho MD [Primary Care Provider] -
[2016-09-30] MEDS: *HR* OxyCODONE/APAP 7.5/325 TABLET PO PRN ×4 (03:55→18:45)
[2016-09-30] MEDS: Insulin LISPRO 300 UNITS/3 ML VIAL SQ SCH ×4 (07:33→20:43)
[2016-09-30] MEDS: Aspirin 325 MG TABLET PO SCH (08:01)
[2016-09-30] MEDS: *HR* Metformin 500 MG TABLET PO SCH ×2 (08:02→16:44)
[2016-09-30] MEDS: Sennosides/Docusate Sodium TABLET PO SCH (08:03)
[2016-09-30] MEDS: *HR* GlipiZIDE 5 MG TABLET PO SCH ×2 (08:05→20:43)
[2016-09-30] MEDS: Fenofibrate 54 MG TABLET PO SCH (08:05)
[2016-09-30] MEDS: (Desvenlafaxine Succinate [Pristiq] 50 MG) PO SCH (08:06)
[2016-09-30] MEDS: Insulin DETEMIR 100 UNIT/ML X5UNITS SQ SCH (20:44)
[2016-10-01] MEDS: *HR* OxyCODONE/APAP 7.5/325 TABLET PO PRN ×4 (03:04→21:18)
[2016-10-01] MEDS: Fenofibrate 54 MG TABLET PO SCH (08:17)
[2016-10-01] MEDS: *HR* Metformin 500 MG TABLET PO SCH ×2 (08:17→16:29)
[2016-10-01] MEDS: Aspirin 325 MG TABLET PO SCH (08:17)
[2016-10-01] MEDS: *HR* GlipiZIDE 5 MG TABLET PO SCH ×2 (08:18→21:16)
[2016-10-01] MEDS: (Desvenlafaxine Succinate [Pristiq] 50 MG) PO SCH (08:19)
[2016-10-01] MEDS: Sennosides/Docusate Sodium TABLET PO SCH (08:19)
[2016-10-01] MEDS: Insulin LISPRO 300 UNITS/3 ML VIAL SQ SCH ×4 (08:19→21:17)
--- NOTE | 2016-10-01 11:35 | Internal Med Progress Note ---
Date of Encounter: 10/01/16 Time of Encounter: 11:00 - Assessment and plan (1) CVA (cerebral vascular accident) Current Visit: Yes Status: Acute Assessment and plan: Patient's working with PT OT TR. Today is Sunday and she is sleeping. Qualifiers: CVA mechanism: unspecified Qualified Code(s): I63.9 - Cerebral infarction, unspecified (2) Total knee replacement status Current Visit: Yes Status: Acute Assessment and plan: Ratio total knee after which she had the CVA. Qualifiers: Laterality: right Qualified Code(s): Z96.651 - Presence of right artificial knee joint - Time Spent With Patient less than 15 minutes - Subjective Interval history: Patient's doing okay just needs to be pushed sometimes. - Constitutional Vitals: Temp Pulse Resp BP Pulse Ox 98.8 F 70 18 139/69 94 L 10/01/16 07:34 10/01/16 07:34 10/01/16 07:34 10/01/16 07:34 10/01/16 07:34 General appearance: Present: A&O X 2, pleasant, no acute distress - Head Head exam: Present: atraumatic, normal inspection, normocephalic - Neck Neck exam general surgery: Present: supple, trachea midline. Absent: lymphadenopathy - Respiratory Respiratory exam: Present: CTAB. Absent: accessory muscle use, rales, rhonchi, wheezes - Cardiovascular Cardiovascular exam: Present: RRR, +S1, +S2. Absent: diastolic murmur, gallop, rubs, systolic murmur Internal Medicine: Result - Labs CBC & Chem 7: 09/25/16 05:30 09/27/16 05:00 Labs: Lab looks okay - ABG Interpretation ABG results: PT/INR, D-dimer PT 13.7 Seconds (9.4-12.1) H 09/23/16 05:20 - VTE Documentation of Mechanical Device: Graduated compression elastic hosiery Consult Discharge Plan - Plan Referrals: Ashly Cho MD [Primary Care Provider] -
[2016-10-01] MEDS: Insulin DETEMIR 100 UNIT/ML X5UNITS SQ SCH (21:17)
[2016-10-02] MEDS: *HR* OxyCODONE/APAP 7.5/325 TABLET PO PRN ×5 (02:58→22:27)
[2016-10-02 05:40] LABS: Basophils # 0.1 K/mcL (0.0-0.2); Basophils % 1.2 %; Eosinophils # 0.5 K/mcL (0.0-0.6); Eosinophils % 7.2 %; Hemoglobin 8.8 g/dL (11.5-15.4); Immature Granulocytes % 0.6 % (0-4); Lymphocytes # 2.6 K/mcL (0.6-4.6); Mean Corpuscular HGB Conc 31.4 g/dL (31.6-35.5); Mean Corpuscular Hemoglobin 27.7 pg (28.0-33.3); Mean Corpuscular Volume 88.1 fL (83.0-100.0); Mean Platelet Volume 8.9 fL (9.4-12.4); Monocytes # 0.6 K/mcL (0.0-1.3); Monocytes % 8.1 %; Neutrophils # 3.2 K/mcL (1.6-8.9); Platelet Count 460 K/mcL (140-400); Red Blood Count 3.18 M/mcL (3.82-4.97); Red Cell Distribution Width 14.8 % (11.5-14.5); Segmented Neutrophils % 45.9 %
[2016-10-02 05:42] LABS: BUN/Creatinine Ratio 31 (6-26); Blood Urea Nitrogen 28 mg/dL (7-20); Calcium 9.7 mg/dL (8.6-10.8); Carbon Dioxide 24 mEq/L (19-29); Chloride 104 mEq/L (98-109); Glucose 69 mg/dL (70-99); Osmolality,Calculated 288 (280-300); Potassium 4.7 mEq/L (3.5-4.5); Sodium 137 mEq/L (136-145); eGFR For African Americans > 60 (> 60); eGFR For Non-African Americans > 60 (> 60)
[2016-10-02] MEDS: Insulin LISPRO 300 UNITS/3 ML VIAL SQ SCH ×4 (08:00→22:30)
[2016-10-02] MEDS: *HR* Metformin 500 MG TABLET PO SCH ×2 (08:18→17:01)
[2016-10-02] MEDS: *HR* GlipiZIDE 5 MG TABLET PO SCH ×2 (08:18→22:26)
[2016-10-02] MEDS: Aspirin 325 MG TABLET PO SCH (08:19)
[2016-10-02] MEDS: (Desvenlafaxine Succinate [Pristiq] 50 MG) PO SCH (08:19)
[2016-10-02] MEDS: Fenofibrate 54 MG TABLET PO SCH (08:19)
[2016-10-02] MEDS: Sennosides/Docusate Sodium TABLET PO SCH (08:19)
--- NOTE | 2016-10-02 13:02 | Internal Med Progress Note ---
Date of Encounter: 10/02/16 Time of Encounter: 13:00 - Assessment and plan (1) CVA (cerebral vascular accident) Current Visit: Yes Status: Acute Assessment and plan: still has diminished endurance which interferes with her ability to tolerate acute rehab at this time. She requires max A for transfers with a slide board. She suffers from frustration and depression due to her cva following her knee replacement Qualifiers: CVA mechanism: unspecified Qualified Code(s): I63.9 - Cerebral infarction, unspecified (2) Diabetes Current Visit: Yes Status: Chronic Qualifiers: Diabetes mellitus type: type 2 Diabetes mellitus complication status: with circulatory complication Diabetes mellitus complication detail: with other circulatory complications Diabetes mellitus shelter insulin use: with shelter use Qualified Code(s): E11.59 - Type 2 diabetes mellitus with other circulatory complications; Z79.4 - retirement (current) use of insulin - Subjective Interval history: Complains of mild postop pain on the knee after walking around to the bathroom. Still complains of generalized weakness. feels slightly better today. No shortness of breath. No chest pain. - Constitutional Vitals: Temp Pulse Resp BP Pulse Ox 97.7 F 75 18 147/62 95 10/02/16 08:00 10/02/16 10:23 10/02/16 10:23 10/02/16 10:23 10/02/16 10:23 General appearance: Present: A&O X 2, pleasant, no acute distress - Respiratory Respiratory exam: Present: CTAB. Absent: accessory muscle use, rales, rhonchi, wheezes - Cardiovascular Cardiovascular exam: Present: RRR, +S1, +S2. Absent: diastolic murmur, gallop, rubs, systolic murmur - GI/Abdominal GI/Abdominal exam: Present: normal bowel sounds, soft, no peritoneal signs. Absent: distended, tenderness - Expanded Lower Extremities Exam Knee exam: Present: tenderness - Incison Incision: Present: clean and dry Internal Medicine: Result - Labs CBC & Chem 7: 10/02/16 05:20 10/02/16 05:20 Labs: Short CBC 10/02/16 Range/Units 05:20 WBC 6.9 (4.3-11.1) K/mcL Hgb 8.8 L (11.5-15.4) g/dL Hct 28.0 L (35.3-44.9) % Plt Count 460 H (140-400) K/mcL Neutrophils # 3.2 (1.6-8.9) K/mcL BMP 10/02/16 05:20 Sodium 137 Potassium 4.7 H Chloride 104 Carbon Dioxide 24 BUN 28 H Creatinine 0.90 Glucose 69 L Calcium 9.7 - ABG Interpretation ABG results: PT/INR, D-dimer PT 13.7 Seconds (9.4-12.1) H 09/23/16 05:20 - VTE Documentation of Mechanical Device: Graduated compression elastic hosiery Consult Discharge Plan - Plan Referrals: Ashly Cho MD [Primary Care Provider] -
[2016-10-02] MEDS: Insulin DETEMIR 100 UNIT/ML X5UNITS SQ SCH (22:26)
[2016-10-03] MEDS: *HR* OxyCODONE/APAP 7.5/325 TABLET PO PRN ×5 (00:50→21:21)
[2016-10-03] MEDS: (Desvenlafaxine Succinate [Pristiq] 50 MG) PO SCH (07:56)
[2016-10-03] MEDS: Fenofibrate 54 MG TABLET PO SCH (08:33)
[2016-10-03] MEDS: Sennosides/Docusate Sodium TABLET PO SCH (08:33)
[2016-10-03] MEDS: Aspirin 325 MG TABLET PO SCH (08:33)
[2016-10-03] MEDS: *HR* Metformin 500 MG TABLET PO SCH ×2 (08:34→16:42)
[2016-10-03] MEDS: *HR* GlipiZIDE 5 MG TABLET PO SCH ×2 (08:34→21:20)
[2016-10-03] MEDS: Insulin LISPRO 300 UNITS/3 ML VIAL SQ SCH ×4 (08:35→21:21)
[2016-10-03] MEDS: Ondansetron ODT 4 MG TAB.RAPDIS SL PRN (11:19)
[2016-10-03] MEDS: Insulin DETEMIR 100 UNIT/ML X5UNITS SQ SCH ×2 (14:17→21:22)
--- NOTE | 2016-10-03 15:02 | Internal Med Progress Note ---
Date of Encounter: 10/03/16 Time of Encounter: 15:00 - Assessment and plan (1) CVA (cerebral vascular accident) Current Visit: Yes Status: Acute Assessment and plan: Please see PT OT and TR and speech notes Qualifiers: CVA mechanism: unspecified Qualified Code(s): I63.9 - Cerebral infarction, unspecified (2) Total knee replacement status Current Visit: Yes Status: Acute Qualifiers: Laterality: right Qualified Code(s): Z96.651 - Presence of right artificial knee joint - Time Spent With Patient less than 15 minutes - Subjective Interval history: Patient's doing okay just needs to be pushed sometimes. Complains of groin erythema and start some antifungal - Constitutional Vitals: Temp Pulse Resp BP Pulse Ox 98.0 F 66 16 115/69 91 L 10/03/16 07:26 10/03/16 07:26 10/03/16 07:26 10/03/16 07:26 10/03/16 07:26 General appearance: Present: A&O X 2, pleasant, no acute distress - Head Head exam: Present: atraumatic, normal inspection, normocephalic - Neck Neck exam general surgery: Present: supple, trachea midline. Absent: lymphadenopathy - Respiratory Respiratory exam: Present: CTAB. Absent: accessory muscle use, rales, rhonchi, wheezes - Cardiovascular Cardiovascular exam: Present: RRR, +S1, +S2. Absent: diastolic murmur, gallop, rubs, systolic murmur - GI/Abdominal GI/Abdominal exam: Present: normal bowel sounds, soft, no peritoneal signs. Absent: distended, tenderness Internal Medicine: Result - Labs CBC & Chem 7: 10/02/16 05:20 10/02/16 05:20 Labs: Lab looks good - ABG Interpretation ABG results: PT/INR, D-dimer PT 13.7 Seconds (9.4-12.1) H 09/23/16 05:20 - VTE Documentation of Mechanical Device: Graduated compression elastic hosiery Consult Discharge Plan - Plan Referrals: Ashly Cho MD [Primary Care Provider] -
[2016-10-04] MEDS: *HR* OxyCODONE/APAP 7.5/325 TABLET PO PRN ×4 (04:15→20:06)
[2016-10-04] MEDS: Insulin LISPRO 300 UNITS/3 ML VIAL SQ SCH ×4 (07:29→22:29)
[2016-10-04] MEDS: Fluconazole 100 MG TABLET PO SCH (08:53)
[2016-10-04] MEDS: Aspirin 325 MG TABLET PO SCH (08:55)
[2016-10-04] MEDS: *HR* Metformin 500 MG TABLET PO SCH ×2 (08:55→17:15)
[2016-10-04] MEDS: Sennosides/Docusate Sodium TABLET PO SCH (08:55)
[2016-10-04] MEDS: Fenofibrate 54 MG TABLET PO SCH (08:55)
[2016-10-04] MEDS: Ketoconazole 2% CRM 15 GM TUBE TP SCH (08:56)
[2016-10-04] MEDS: *HR* GlipiZIDE 5 MG TABLET PO SCH ×2 (08:56→22:41)
[2016-10-04] MEDS: (Desvenlafaxine Succinate [Pristiq] 50 MG) PO SCH (09:40)
--- NOTE | 2016-10-04 14:21 | Internal Med Progress Note ---
Date of Encounter: 10/04/16 Time of Encounter: 14:00 - Assessment and plan (1) CVA (cerebral vascular accident) Current Visit: Yes Status: Acute Assessment and plan: Patient has CVA which brought her to the rehabilitation unit. This was postop total knee replacement Qualifiers: CVA mechanism: unspecified Qualified Code(s): I63.9 - Cerebral infarction, unspecified (2) Total knee replacement status Current Visit: Yes Status: Acute Assessment and plan: post op CVA Qualifiers: Laterality: right Qualified Code(s): Z96.651 - Presence of right artificial knee joint - Time Spent With Patient less than 15 minutes - Subjective Interval history: I am so tired patient reports being very tired after sessions of PT OT and TR.. - Constitutional Vitals: Temp Pulse Resp BP Pulse Ox 97.9 F 70 16 123/67 91 L 10/04/16 07:00 10/04/16 07:00 10/04/16 07:00 10/04/16 07:00 10/04/16 07:00 General appearance: Present: A&O X 2, pleasant, no acute distress - Head Head exam: Present: atraumatic, normal inspection, normocephalic - Neck Neck exam general surgery: Present: supple, trachea midline. Absent: lymphadenopathy - Respiratory Respiratory exam: Present: CTAB. Absent: accessory muscle use, rales, rhonchi, wheezes - Cardiovascular Cardiovascular exam: Present: RRR, +S1, +S2. Absent: diastolic murmur, gallop, rubs, systolic murmur - GI/Abdominal GI/Abdominal exam: Present: normal bowel sounds, soft, no peritoneal signs. Absent: distended, tenderness Internal Medicine: Result - Labs CBC & Chem 7: 10/02/16 05:20 10/02/16 05:20 Labs: Laboratories okay - ABG Interpretation ABG results: PT/INR, D-dimer PT 13.7 Seconds (9.4-12.1) H 09/23/16 05:20 - VTE Documentation of Mechanical Device: Graduated compression elastic hosiery Consult Discharge Plan - Plan Referrals: Ashly Cho MD [Primary Care Provider] -
[2016-10-04] MEDS: Insulin DETEMIR 100 UNIT/ML X5UNITS SQ SCH (22:41)
[2016-10-05] MEDS: *HR* OxyCODONE/APAP 7.5/325 TABLET PO PRN ×3 (06:41→20:48)
[2016-10-05] MEDS: Sennosides/Docusate Sodium TABLET PO SCH (08:47)
[2016-10-05] MEDS: Fenofibrate 54 MG TABLET PO SCH (08:47)
[2016-10-05] MEDS: *HR* GlipiZIDE 5 MG TABLET PO SCH ×2 (08:47→20:47)
[2016-10-05] MEDS: *HR* Metformin 500 MG TABLET PO SCH ×2 (08:47→18:35)
[2016-10-05] MEDS: Insulin LISPRO 300 UNITS/3 ML VIAL SQ SCH ×4 (08:48→20:46)
[2016-10-05] MEDS: Aspirin 325 MG TABLET PO SCH (08:48)
[2016-10-05] MEDS: Fluconazole 100 MG TABLET PO SCH (08:48)
[2016-10-05] MEDS: (Desvenlafaxine Succinate [Pristiq] 50 MG) PO SCH (08:49)
[2016-10-05] MEDS: Ketoconazole 2% CRM 15 GM TUBE TP SCH (08:49)
--- NOTE | 2016-10-05 15:02 | Internal Med Progress Note ---
Date of Encounter: 10/05/16 Time of Encounter: 14:00 - Assessment and plan (1) CVA (cerebral vascular accident) Current Visit: Yes Status: Acute Assessment and plan: Patient seems more improved today and continue to work with therapy Qualifiers: CVA mechanism: unspecified Qualified Code(s): I63.9 - Cerebral infarction, unspecified (2) Total knee replacement status Current Visit: Yes Status: Acute Assessment and plan: Patient had CVA status post total knee replacement Qualifiers: Laterality: right Qualified Code(s): Z96.651 - Presence of right artificial knee joint - Time Spent With Patient less than 15 minutes - Subjective Interval history: Thoughts and seems much brighter today was smiling and joking with the staff. As the - Constitutional Vitals: Temp Pulse Resp BP Pulse Ox 97.0 F L 70 16 124/55 96 10/05/16 07:00 10/05/16 07:00 10/05/16 07:00 10/05/16 07:00 10/05/16 07:00 General appearance: Present: A&O X 2, pleasant, no acute distress - Head Head exam: Present: atraumatic, normal inspection, normocephalic - Neck Neck exam general surgery: Present: supple, trachea midline. Absent: lymphadenopathy - Respiratory Respiratory exam: Present: CTAB. Absent: accessory muscle use, rales, rhonchi, wheezes - Cardiovascular Cardiovascular exam: Present: RRR, +S1, +S2. Absent: diastolic murmur, gallop, rubs, systolic murmur - GI/Abdominal GI/Abdominal exam: Present: normal bowel sounds, soft, no peritoneal signs. Absent: distended, tenderness Internal Medicine: Result - Labs CBC & Chem 7: 10/02/16 05:20 10/02/16 05:20 Labs: Lab has not [id number] - ABG Interpretation ABG results: PT/INR, D-dimer PT 13.7 Seconds (9.4-12.1) H 09/23/16 05:20 - VTE Documentation of Mechanical Device: Graduated compression elastic hosiery Consult Discharge Plan - Plan Referrals: Ashly Cho MD [Primary Care Provider] -
[2016-10-05] MEDS: Insulin DETEMIR 100 UNIT/ML X5UNITS SQ SCH (20:48)
[2016-10-06] MEDS: *HR* OxyCODONE/APAP 7.5/325 TABLET PO PRN ×3 (03:26→21:20)
[2016-10-06] MEDS: Sennosides/Docusate Sodium TABLET PO SCH (09:16)
[2016-10-06] MEDS: Aspirin 325 MG TABLET PO SCH (09:17)
[2016-10-06] MEDS: *HR* GlipiZIDE 5 MG TABLET PO SCH ×2 (09:17→21:21)
[2016-10-06] MEDS: Fenofibrate 54 MG TABLET PO SCH (09:17)
[2016-10-06] MEDS: *HR* Metformin 500 MG TABLET PO SCH ×2 (09:17→17:43)
[2016-10-06] MEDS: Fluconazole 100 MG TABLET PO SCH (09:17)
[2016-10-06] MEDS: Insulin LISPRO 300 UNITS/3 ML VIAL SQ SCH ×4 (09:18→21:16)
[2016-10-06] MEDS: (Desvenlafaxine Succinate [Pristiq] 50 MG) PO SCH (09:18)
[2016-10-06] MEDS: Ketoconazole 2% CRM 15 GM TUBE TP SCH (09:18)
--- NOTE | 2016-10-06 13:37 | Internal Med Progress Note ---
Date of Encounter: 10/06/16 Time of Encounter: 14:00 - Assessment and plan (1) CVA (cerebral vascular accident) Current Visit: Yes Status: Acute Assessment and plan: Working with PT OT TR and speech. Qualifiers: CVA mechanism: unspecified Qualified Code(s): I63.9 - Cerebral infarction, unspecified (2) Total knee replacement status Current Visit: Yes Status: Acute Assessment and plan: Patient apparently had a stroke after total knee replacement Qualifiers: Laterality: right Qualified Code(s): Z96.651 - Presence of right artificial knee joint - Time Spent With Patient less than 15 minutes - Subjective Interval history: Thoughts and seems much brighter today was smiling and joking with the staff. As the. Operative wheelchair in therapy right now improving - Constitutional Vitals: Temp Pulse Resp BP Pulse Ox 97.9 F 67 18 125/56 92 L 10/06/16 08:02 10/06/16 08:02 10/06/16 08:02 10/06/16 08:02 10/06/16 08:02 General appearance: Present: A&O X 2, pleasant, no acute distress - Head Head exam: Present: atraumatic, normocephalic - Neck Neck exam general surgery: Present: supple, trachea midline. Absent: lymphadenopathy - Respiratory Respiratory exam: Present: CTAB. Absent: accessory muscle use, rales, rhonchi, wheezes - Cardiovascular Cardiovascular exam: Present: RRR, +S1, +S2. Absent: diastolic murmur, gallop, rubs, systolic murmur Internal Medicine: Result - Labs CBC & Chem 7: 10/02/16 05:20 10/02/16 05:20 Labs: No acute change - ABG Interpretation ABG results: PT/INR, D-dimer PT 13.7 Seconds (9.4-12.1) H 09/23/16 05:20 - VTE Documentation of Mechanical Device: Graduated compression elastic hosiery Consult Discharge Plan - Plan Referrals: Ashly Cho MD [Primary Care Provider] -
[2016-10-06] MEDS: Insulin DETEMIR 100 UNIT/ML X5UNITS SQ SCH (21:21)
[2016-10-07] MEDS: Sennosides/Docusate Sodium TABLET PO SCH (07:47)
[2016-10-07] MEDS: Fenofibrate 54 MG TABLET PO SCH (07:48)
[2016-10-07] MEDS: Insulin LISPRO 300 UNITS/3 ML VIAL SQ SCH ×4 (07:49→22:46)
[2016-10-07] MEDS: *HR* OxyCODONE/APAP 7.5/325 TABLET PO PRN ×3 (07:51→22:42)
[2016-10-07] MEDS: *HR* Metformin 500 MG TABLET PO SCH ×2 (07:51→16:19)
[2016-10-07] MEDS: Ketoconazole 2% CRM 15 GM TUBE TP SCH (07:52)
[2016-10-07] MEDS: Aspirin 325 MG TABLET PO SCH (07:52)
[2016-10-07] MEDS: *HR* GlipiZIDE 5 MG TABLET PO SCH ×2 (07:52→22:41)
[2016-10-07] MEDS: (Desvenlafaxine Succinate [Pristiq] 50 MG) PO SCH (07:53)
--- NOTE | 2016-10-07 21:45 | Internal Med Progress Note ---
Date of Encounter: 10/07/16 Time of Encounter: 21:43 - Assessment and plan (1) CVA (cerebral vascular accident) Current Visit: Yes Status: Acute Assessment and plan: . Still had some cognitive deficit. PTOT working on balance, transfer. Qualifiers: CVA mechanism: unspecified Qualified Code(s): I63.9 - Cerebral infarction, unspecified (2) Diabetes Current Visit: Yes Status: Chronic Assessment and plan: Accu-Chek [id number]. Qualifiers: Diabetes mellitus type: type 2 Diabetes mellitus complication status: with circulatory complication Diabetes mellitus complication detail: with other circulatory complications Diabetes mellitus intermodal dispatcher insulin use: with [facility] use Qualified Code(s): E11.59 - Type 2 diabetes mellitus with other circulatory complications; Z79.4 - penitentiary (current) use of insulin - Subjective Interval history: Complains of mild postop pain and swelling on the knee after walking around to the bathroom. Still complains of generalized weakness. feels slightly better today. No shortness of breath. No chest pain. - Constitutional Vitals: Temp Pulse Resp BP Pulse Ox 97.6 F 64 18 119/57 93 L 10/07/16 19:00 10/07/16 19:00 10/07/16 19:00 10/07/16 19:00 10/07/16 19:00 General appearance: Present: A&O X 2, pleasant, no acute distress - Expanded Lower Extremities Exam Knee exam: Present: swelling, tenderness - Incison Incision: Present: clean and dry Internal Medicine: Result - Labs CBC & Chem 7: 10/02/16 05:20 10/02/16 05:20 - ABG Interpretation ABG results: PT/INR, D-dimer PT 13.7 Seconds (9.4-12.1) H 09/23/16 05:20 - VTE Documentation of Mechanical Device: Graduated compression elastic hosiery Consult Discharge Plan - Plan Referrals: Ashly Cho MD [Primary Care Provider] -
--- NOTE | 2016-10-07 21:46 | Internal Med Progress Note ---
Date of Encounter: 10/08/16 Time of Encounter: 09:42 - Assessment and plan (1) CVA (cerebral vascular accident) Current Visit: Yes Status: Acute Assessment and plan: . Right upper extremity strength improving. Still has the facial droop. Speech improving. Still had some cognitive deficit. PTOT working on balance, transfer. Qualifiers: CVA mechanism: unspecified Qualified Code(s): I63.9 - Cerebral infarction, unspecified (2) Diabetes Current Visit: Yes Status: Chronic Qualifiers: Diabetes mellitus type: type 2 Diabetes mellitus complication status: with circulatory complication Diabetes mellitus complication detail: with other circulatory complications Diabetes mellitus fci insulin use: with fci use Qualified Code(s): E11.59 - Type 2 diabetes mellitus with other circulatory complications; Z79.4 - senior care (current) use of insulin - Subjective Interval history: Feeling better today Complains of mild postop pain and swelling on the knee after walking around to the bathroom. Still complains of generalized weakness. feels slightly better today. No shortness of breath. No chest pain. - Constitutional Vitals: Temp Pulse Resp BP Pulse Ox 97.6 F 64 18 119/57 93 L 10/07/16 19:00 10/07/16 19:00 10/07/16 19:00 10/07/16 19:00 10/07/16 19:00 General appearance: Present: A&O X 2, pleasant, no acute distress - Respiratory Respiratory exam: Present: CTAB. Absent: accessory muscle use, rales, rhonchi, wheezes - Cardiovascular Cardiovascular exam: Present: RRR, +S1, +S2. Absent: diastolic murmur, gallop, rubs, systolic murmur - GI/Abdominal GI/Abdominal exam: Present: normal bowel sounds, soft, no peritoneal signs. Absent: distended, tenderness - Expanded Lower Extremities Exam Knee exam: Present: swelling, tenderness Internal Medicine: Result - Labs CBC & Chem 7: 10/02/16 05:20 10/02/16 05:20 - ABG Interpretation ABG results: PT/INR, D-dimer PT 13.7 Seconds (9.4-12.1) H 09/23/16 05:20 - VTE Documentation of Mechanical Device: Graduated compression elastic hosiery Consult Discharge Plan - Plan Referrals: Ashly Cho MD [Primary Care Provider] -
[2016-10-07] MEDS: Insulin DETEMIR 100 UNIT/ML X5UNITS SQ SCH (22:41)
[2016-10-08] MEDS: *HR* OxyCODONE/APAP 7.5/325 TABLET PO PRN ×4 (05:15→22:39)
[2016-10-08] MEDS: Insulin LISPRO 300 UNITS/3 ML VIAL SQ SCH ×4 (07:48→22:27)
[2016-10-08] MEDS: *HR* GlipiZIDE 5 MG TABLET PO SCH ×2 (09:37→22:38)
[2016-10-08] MEDS: *HR* Metformin 500 MG TABLET PO SCH ×2 (09:37→18:04)
[2016-10-08] MEDS: Aspirin 325 MG TABLET PO SCH (09:38)
[2016-10-08] MEDS: Sennosides/Docusate Sodium TABLET PO SCH (09:38)
[2016-10-08] MEDS: Fenofibrate 54 MG TABLET PO SCH (09:38)
[2016-10-08] MEDS: (Desvenlafaxine Succinate [Pristiq] 50 MG) PO SCH (09:39)
[2016-10-08] MEDS: Ketoconazole 2% CRM 15 GM TUBE TP SCH (09:40)
[2016-10-08] MEDS: Insulin DETEMIR 100 UNIT/ML X5UNITS SQ SCH (22:38)
[2016-10-09 05:51] LABS: Basophils % 0.5 %; Eosinophils # 0.4 K/mcL (0.0-0.6); Eosinophils % 7.1 %; Hematocrit 29.8 % (35.3-44.9); Hemoglobin 9.2 g/dL (11.5-15.4); Immature Granulocytes % 0.2 % (0-4); Lymphocytes # 2.2 K/mcL (0.6-4.6); Lymphocytes % 40.1 %; Mean Corpuscular HGB Conc 30.9 g/dL (31.6-35.5); Mean Corpuscular Hemoglobin 27.2 pg (28.0-33.3); Mean Corpuscular Volume 88.2 fL (83.0-100.0); Mean Platelet Volume 9.7 fL (9.4-12.4); Monocytes # 0.5 K/mcL (0.0-1.3); Monocytes % 9.1 %; Neutrophils # 2.4 K/mcL (1.6-8.9); Platelet Count 324 K/mcL (140-400); Red Blood Count 3.38 M/mcL (3.82-4.97); Red Cell Distribution Width 14.6 % (11.5-14.5)
[2016-10-09 06:03] LABS: BUN/Creatinine Ratio 31 (6-26); Blood Urea Nitrogen 32 mg/dL (7-20); Calcium 9.6 mg/dL (8.6-10.8); Carbon Dioxide 26 mEq/L (19-29); Chloride 104 mEq/L (98-109); Glucose 77 mg/dL (70-99); Osmolality,Calculated 294 (280-300); Potassium 4.4 mEq/L (3.5-4.5); Sodium 139 mEq/L (136-145); eGFR For African Americans > 60 (> 60); eGFR For Non-African Americans 52 (> 60)
[2016-10-09] MEDS: *HR* OxyCODONE/APAP 7.5/325 TABLET PO PRN ×3 (06:28→18:48)
[2016-10-09] MEDS: (Desvenlafaxine Succinate [Pristiq] 50 MG) PO SCH (10:31)
[2016-10-09] MEDS: *HR* Metformin 500 MG TABLET PO SCH ×2 (10:33→18:48)
[2016-10-09] MEDS: Insulin LISPRO 300 UNITS/3 ML VIAL SQ SCH ×4 (10:33→21:41)
[2016-10-09] MEDS: Sennosides/Docusate Sodium TABLET PO SCH (10:34)
[2016-10-09] MEDS: *HR* GlipiZIDE 5 MG TABLET PO SCH ×2 (10:34→21:41)
[2016-10-09] MEDS: Aspirin 325 MG TABLET PO SCH (10:34)
[2016-10-09] MEDS: Ketoconazole 2% CRM 15 GM TUBE TP SCH (10:34)
[2016-10-09] MEDS: Fenofibrate 54 MG TABLET PO SCH (10:35)
[2016-10-09] MEDS: Insulin DETEMIR 100 UNIT/ML X5UNITS SQ SCH (21:41)
[2016-10-10] MEDS: *HR* OxyCODONE/APAP 7.5/325 TABLET PO PRN ×3 (03:03→14:44)
[2016-10-10] MEDS: Insulin LISPRO 300 UNITS/3 ML VIAL SQ SCH ×4 (07:40→20:32)
[2016-10-10] MEDS: *HR* Metformin 500 MG TABLET PO SCH ×2 (08:41→17:09)
[2016-10-10] MEDS: *HR* GlipiZIDE 5 MG TABLET PO SCH ×2 (08:42→20:31)
[2016-10-10] MEDS: Sennosides/Docusate Sodium TABLET PO SCH (08:43)
[2016-10-10] MEDS: Fenofibrate 54 MG TABLET PO SCH (08:43)
[2016-10-10] MEDS: Aspirin 325 MG TABLET PO SCH (08:43)
[2016-10-10] MEDS: (Desvenlafaxine Succinate [Pristiq] 50 MG) PO SCH (08:45)
[2016-10-10] MEDS: Ketoconazole 2% CRM 15 GM TUBE TP SCH (13:24)
[2016-10-10] MEDS: Insulin DETEMIR 100 UNIT/ML X5UNITS SQ SCH (20:33)
--- NOTE | 2016-10-10 22:32 | Internal Med Progress Note ---
Date of Encounter: 10/10/16 Time of Encounter: 22:31 - Assessment and plan (1) CVA (cerebral vascular accident) Current Visit: Yes Status: Acute Assessment and plan: . Right upper extremity strength improving. Still has the facial droop. Speech improving. Still had some cognitive deficit. PTOT working on balance, transfer. Qualifiers: CVA mechanism: unspecified Qualified Code(s): I63.9 - Cerebral infarction, unspecified (2) Diabetes Current Visit: Yes Status: Chronic Qualifiers: Diabetes mellitus type: type 2 Diabetes mellitus complication status: with circulatory complication Diabetes mellitus complication detail: with other circulatory complications Diabetes mellitus half-way insulin use: with half-way use Qualified Code(s): E11.59 - Type 2 diabetes mellitus with other circulatory complications; Z79.4 - assisted (current) use of insulin - Subjective Interval history: Feeling better today Complains of mild postop pain and swelling on the knee after walking around to the bathroom. Still complains of generalized weakness. feels slightly better today. No shortness of breath. No chest pain. - Constitutional Vitals: Temp Pulse Resp BP Pulse Ox 97.9 F 68 16 113/58 96 10/10/16 18:44 10/10/16 18:44 10/10/16 07:00 10/10/16 18:44 10/10/16 18:44 General appearance: Present: A&O X 2, pleasant, no acute distress - Respiratory Respiratory exam: Present: CTAB. Absent: accessory muscle use, rales, rhonchi, wheezes - Cardiovascular Cardiovascular exam: Present: RRR, +S1, +S2. Absent: diastolic murmur, gallop, rubs, systolic murmur - GI/Abdominal GI/Abdominal exam: Present: normal bowel sounds, soft, no peritoneal signs. Absent: distended, tenderness Internal Medicine: Result - Labs CBC & Chem 7: 10/09/16 05:20 10/09/16 05:20 - ABG Interpretation ABG results: PT/INR, D-dimer PT 13.7 Seconds (9.4-12.1) H 09/23/16 05:20 - VTE Documentation of Mechanical Device: Graduated compression elastic hosiery Consult Discharge Plan - Plan Referrals: Ashly Cho MD [Primary Care Provider] -
[2016-10-11] MEDS: *HR* OxyCODONE/APAP 7.5/325 TABLET PO PRN ×4 (02:00→22:16)
[2016-10-11] MEDS: *HR* GlipiZIDE 5 MG TABLET PO SCH ×2 (07:27→21:10)
[2016-10-11] MEDS: *HR* Metformin 500 MG TABLET PO SCH ×2 (07:27→17:59)
[2016-10-11] MEDS: Sennosides/Docusate Sodium TABLET PO SCH (07:27)
[2016-10-11] MEDS: Fenofibrate 54 MG TABLET PO SCH (07:27)
[2016-10-11] MEDS: Ketoconazole 2% CRM 15 GM TUBE TP SCH (07:29)
[2016-10-11] MEDS: (Desvenlafaxine Succinate [Pristiq] 50 MG) PO SCH (07:29)
[2016-10-11] MEDS: Aspirin 325 MG TABLET PO SCH (07:30)
[2016-10-11] MEDS: Insulin LISPRO 300 UNITS/3 ML VIAL SQ SCH ×4 (12:49→21:10)
--- NOTE | 2016-10-11 15:47 | Internal Med Progress Note ---
Date of Encounter: 10/11/16 Time of Encounter: 15:00 - Assessment and plan (1) CVA (cerebral vascular accident) Current Visit: Yes Status: Acute Assessment and plan: Patient's working with PT OT and ER staff. Qualifiers: CVA mechanism: unspecified Qualified Code(s): I63.9 - Cerebral infarction, unspecified (2) Total knee replacement status Current Visit: Yes Status: Acute Assessment and plan: Patient had total knee replacement subsequent to that upon awakening had a CVA Qualifiers: Laterality: right Qualified Code(s): Z96.651 - Presence of right artificial knee joint - Subjective Interval history: Thoughts and seems much brighter today was smiling and joking with the staff. Continues to see much brighter participating in improving - Constitutional Vitals: Temp Pulse Resp BP Pulse Ox 98.1 F 66 16 129/58 94 L 10/11/16 07:00 10/11/16 07:00 10/11/16 07:00 10/11/16 07:00 10/11/16 07:00 General appearance: Present: A&O X 2, pleasant, no acute distress - Head Head exam: Present: atraumatic, normal inspection, normocephalic - Neck Neck exam general surgery: Present: supple, trachea midline. Absent: lymphadenopathy - Respiratory Respiratory exam: Present: CTAB. Absent: accessory muscle use, rales, rhonchi, wheezes - GI/Abdominal GI/Abdominal exam: Present: normal bowel sounds, soft, no peritoneal signs. Absent: distended, tenderness Internal Medicine: Result - Labs CBC & Chem 7: 10/09/16 05:20 10/09/16 05:20 Labs: Lab appears stable - ABG Interpretation ABG results: PT/INR, D-dimer PT 13.7 Seconds (9.4-12.1) H 09/23/16 05:20 - VTE Documentation of Mechanical Device: Graduated compression elastic hosiery Consult Discharge Plan - Plan Referrals: Ashly Cho MD [Primary Care Provider] -
[2016-10-11] MEDS: Insulin DETEMIR 100 UNIT/ML X5UNITS SQ SCH (21:10)
[2016-10-12] MEDS: *HR* OxyCODONE/APAP 7.5/325 TABLET PO PRN ×2 (05:48→19:31)
[2016-10-12] MEDS: Insulin LISPRO 300 UNITS/3 ML VIAL SQ SCH ×4 (08:03→22:47)
[2016-10-12] MEDS: Aspirin 325 MG TABLET PO SCH (08:25)
[2016-10-12] MEDS: *HR* Metformin 500 MG TABLET PO SCH ×2 (08:25→17:24)
[2016-10-12] MEDS: Sennosides/Docusate Sodium TABLET PO SCH (08:25)
[2016-10-12] MEDS: *HR* GlipiZIDE 5 MG TABLET PO SCH ×2 (08:25→22:44)
[2016-10-12] MEDS: Fenofibrate 54 MG TABLET PO SCH (08:27)
[2016-10-12] MEDS: (Desvenlafaxine Succinate [Pristiq] 50 MG) PO SCH (08:27)
[2016-10-12] MEDS: Ketoconazole 2% CRM 15 GM TUBE TP SCH (08:28)
[2016-10-12] MEDS: Insulin DETEMIR 100 UNIT/ML X5UNITS SQ SCH (22:45)
[2016-10-13] MEDS: *HR* OxyCODONE/APAP 7.5/325 TABLET PO PRN ×4 (04:50→21:17)
[2016-10-13] MEDS: Insulin LISPRO 300 UNITS/3 ML VIAL SQ SCH ×4 (07:48→21:16)
[2016-10-13] MEDS: Fenofibrate 54 MG TABLET PO SCH (07:57)
[2016-10-13] MEDS: Sennosides/Docusate Sodium TABLET PO SCH (07:57)
[2016-10-13] MEDS: Ketoconazole 2% CRM 15 GM TUBE TP SCH (07:58)
[2016-10-13] MEDS: *HR* GlipiZIDE 5 MG TABLET PO SCH ×2 (07:58→21:16)
[2016-10-13] MEDS: *HR* Metformin 500 MG TABLET PO SCH ×2 (07:58→17:04)
[2016-10-13] MEDS: Aspirin 325 MG TABLET PO SCH (07:58)
[2016-10-13] MEDS: (Desvenlafaxine Succinate [Pristiq] 50 MG) PO SCH (07:59)
--- NOTE | 2016-10-13 11:53 | Internal Med Progress Note ---
Date of Encounter: 10/13/16 Time of Encounter: 12:00 - Assessment and plan (1) CVA (cerebral vascular accident) Current Visit: Yes Status: Acute Assessment and plan: Patient is had very positive response to therapy. Qualifiers: CVA mechanism: unspecified Qualified Code(s): I63.9 - Cerebral infarction, unspecified (2) Total knee replacement status Current Visit: Yes Status: Acute Assessment and plan: Patient had the CVA status post total knee replacement for ON Qualifiers: Laterality: right Qualified Code(s): Z96.651 - Presence of right artificial knee joint - Time Spent With Patient less than 15 minutes - Subjective Interval history: Thoughts and seems much brighter today was smiling and joking with the staff. Continues to see much brighter participating in improving - Constitutional Vitals: Temp Pulse Resp BP Pulse Ox 97.7 F 60 16 131/59 92 L 10/13/16 07:00 10/13/16 07:00 10/13/16 07:00 10/13/16 07:00 10/13/16 07:00 General appearance: Present: A&O X 2, pleasant, no acute distress - Head Head exam: Present: atraumatic, normal inspection, normocephalic - Neck Neck exam general surgery: Present: supple, trachea midline. Absent: lymphadenopathy - Respiratory Respiratory exam: Present: CTAB. Absent: accessory muscle use, rales, rhonchi, wheezes - Cardiovascular Cardiovascular exam: Present: RRR, +S1, +S2. Absent: diastolic murmur, gallop, rubs, systolic murmur - GI/Abdominal GI/Abdominal exam: Present: normal bowel sounds, soft, no peritoneal signs. Absent: distended, tenderness Internal Medicine: Result - Labs CBC & Chem 7: 10/09/16 05:20 10/09/16 05:20 Labs: Labs look stable - ABG Interpretation ABG results: PT/INR, D-dimer PT 13.7 Seconds (9.4-12.1) H 09/23/16 05:20 - VTE Documentation of Mechanical Device: Graduated compression elastic hosiery Consult Discharge Plan - Plan Referrals: Ashly Cho MD [Primary Care Provider] -
[2016-10-13] MEDS: Insulin DETEMIR 100 UNIT/ML X5UNITS SQ SCH (21:18)
[2016-10-14] MEDS: *HR* OxyCODONE/APAP 7.5/325 TABLET PO PRN ×4 (04:38→21:35)
[2016-10-14] MEDS: Aspirin 325 MG TABLET PO SCH (08:04)
[2016-10-14] MEDS: *HR* GlipiZIDE 5 MG TABLET PO SCH ×2 (08:04→21:35)
[2016-10-14] MEDS: Sennosides/Docusate Sodium TABLET PO SCH (08:05)
[2016-10-14] MEDS: Fenofibrate 54 MG TABLET PO SCH (08:05)
[2016-10-14] MEDS: *HR* Metformin 500 MG TABLET PO SCH ×2 (08:05→17:25)
[2016-10-14] MEDS: Ketoconazole 2% CRM 15 GM TUBE TP SCH (08:06)
[2016-10-14] MEDS: (Desvenlafaxine Succinate [Pristiq] 50 MG) PO SCH (08:06)
[2016-10-14] MEDS: Insulin LISPRO 300 UNITS/3 ML VIAL SQ SCH ×4 (08:06→21:34)
--- NOTE | 2016-10-14 13:15 | Internal Med Progress Note ---
Date of Encounter: 10/14/16 Time of Encounter: 13:00 - Assessment and plan (1) CVA (cerebral vascular accident) Current Visit: Yes Status: Acute Assessment and plan: Patient had CVA postoperatively replacement. She is much improved from admission Qualifiers: CVA mechanism: unspecified Qualified Code(s): I63.9 - Cerebral infarction, unspecified (2) Total knee replacement status Current Visit: Yes Status: Acute Assessment and plan: History of presentation was total knee replacement for ROS Qualifiers: Laterality: right Qualified Code(s): Z96.651 - Presence of right artificial knee joint - Time Spent With Patient less than 15 minutes - Subjective Interval history: Patient had no complaints is ambulating with her walker is getting up and down on her own much improved overall - Constitutional Vitals: Temp Pulse Resp BP Pulse Ox 97.9 F 67 16 124/84 96 10/14/16 07:00 10/14/16 07:00 10/14/16 07:00 10/14/16 07:00 10/14/16 07:00 General appearance: Present: A&O X 2, pleasant, no acute distress - Head Head exam: Present: atraumatic, normal inspection, normocephalic - Neck Neck exam general surgery: Present: supple, trachea midline. Absent: lymphadenopathy - Respiratory Respiratory exam: Present: CTAB. Absent: accessory muscle use, rales, rhonchi, wheezes - Cardiovascular Cardiovascular exam: Present: RRR, +S1, +S2. Absent: diastolic murmur, gallop, rubs, systolic murmur Internal Medicine: Result - Labs CBC & Chem 7: 10/09/16 05:20 10/09/16 05:20 Labs: lab is stable - ABG Interpretation ABG results: PT/INR, D-dimer PT 13.7 Seconds (9.4-12.1) H 09/23/16 05:20 - VTE Documentation of Mechanical Device: Graduated compression elastic hosiery Consult Discharge Plan - Plan Referrals: Ashly Cho MD [Primary Care Provider] -
[2016-10-14] MEDS: Insulin DETEMIR 100 UNIT/ML X5UNITS SQ SCH (21:35)
[2016-10-14 23:09] LABS: Bilirubin,Urine Negative (Negative); Blood,Urine Negative (Negative); Clarity,Urine Slightly Cloudy (Clear); Color,Urine Yellow (Yellow); Glucose,Urine (UA) Normal (Normal); Ketones,Urine Negative (Negative); Leukocyte Esterase,Urine Moderate (Negative); Nitrite,Urine Negative (Negative); Protein,Urine Negative (Neg-Trace); Specific Gravity,Urine 1.015 (1.010-1.025); Urobilinogen,Urine Normal (Normal)
[2016-10-14 23:10] LABS: Bacteria,Urine Few per hpf (None-Few); Squamous Epithelial Cell,Urine Few per lpf (None-Few)
[2016-10-15] MEDS: *HR* OxyCODONE/APAP 7.5/325 TABLET PO PRN ×4 (06:25→21:08)
[2016-10-15] MEDS: Fenofibrate 54 MG TABLET PO SCH (09:48)
[2016-10-15] MEDS: Aspirin 325 MG TABLET PO SCH (09:49)
[2016-10-15] MEDS: *HR* Metformin 500 MG TABLET PO SCH ×2 (09:49→17:35)
[2016-10-15] MEDS: *HR* GlipiZIDE 5 MG TABLET PO SCH ×2 (09:50→21:07)
[2016-10-15] MEDS: Sennosides/Docusate Sodium TABLET PO SCH (09:52)
[2016-10-15] MEDS: Insulin LISPRO 300 UNITS/3 ML VIAL SQ SCH ×4 (09:52→21:02)
[2016-10-15] MEDS: (Desvenlafaxine Succinate [Pristiq] 50 MG) PO SCH (09:52)
[2016-10-15] MEDS: Ketoconazole 2% CRM 15 GM TUBE TP SCH (09:52)
--- NOTE | 2016-10-15 12:29 | Internal Med Progress Note ---
Date of Encounter: 10/15/16 Time of Encounter: 12:00 - Assessment and plan (1) CVA (cerebral vascular accident) Current Visit: Yes Status: Acute Assessment and plan: Improving on a daily basis Qualifiers: CVA mechanism: unspecified Qualified Code(s): I63.9 - Cerebral infarction, unspecified (2) Total knee replacement status Current Visit: Yes Status: Acute Assessment and plan: He shows CVA after her total knee replacement. Qualifiers: Laterality: right Qualified Code(s): Z96.651 - Presence of right artificial knee joint - Time Spent With Patient less than 15 minutes - Subjective Interval history: Patient had no complaints is ambulating with her walker is getting up and down on her own much improved overall - Constitutional Vitals: Temp Pulse Resp BP Pulse Ox 97.9 F 64 16 114/66 95 10/15/16 07:00 10/15/16 07:00 10/15/16 07:00 10/15/16 07:00 10/15/16 07:00 General appearance: Present: A&O X 2, pleasant, no acute distress - Head Head exam: Present: atraumatic, normal inspection, normocephalic - Neck Neck exam general surgery: Present: supple, trachea midline. Absent: lymphadenopathy - Respiratory Respiratory exam: Present: CTAB. Absent: accessory muscle use, rales, rhonchi, wheezes - Cardiovascular Cardiovascular exam: Present: RRR, +S1, +S2. Absent: diastolic murmur, gallop, rubs, systolic murmur - GI/Abdominal GI/Abdominal exam: Present: normal bowel sounds, soft, no peritoneal signs. Absent: distended, tenderness Internal Medicine: Result - Labs CBC & Chem 7: 10/09/16 05:20 10/09/16 05:20 Labs: Urine 10/14/16 Range/Units 22:13 Urine Color Yellow (Yellow) Urine Clarity Slightly Cloudy A (Clear) Urine pH 6.0 (5.0-8.0) pH Units Ur Specific Hye 1.015 (1.010-1.025) Urine Protein Negative (Neg-Trace) mg/dL Urine Glucose (UA) Normal (Normal) mg/dL Lab is stable - ABG Interpretation ABG results: PT/INR, D-dimer PT 13.7 Seconds (9.4-12.1) H 09/23/16 05:20 - VTE Documentation of Mechanical Device: Graduated compression elastic hosiery Consult Discharge Plan - Plan Referrals: Ashly Cho MD [Primary Care Provider] -
[2016-10-15] MEDS: Insulin DETEMIR 100 UNIT/ML X5UNITS SQ SCH (21:09)
[2016-10-16] MEDS: *HR* OxyCODONE/APAP 7.5/325 TABLET PO PRN ×3 (04:42→21:20)
[2016-10-16 05:23] LABS: Basophils % 0.6 %; Eosinophils # 0.6 K/mcL (0.0-0.6); Eosinophils % 10.3 %; Hematocrit 30.1 % (35.3-44.9); Hemoglobin 9.3 g/dL (11.5-15.4); Immature Granulocytes % 0.2 % (0-4); Lymphocytes # 2.3 K/mcL (0.6-4.6); Lymphocytes % 42.7 %; Mean Corpuscular HGB Conc 30.9 g/dL (31.6-35.5); Mean Corpuscular Hemoglobin 27.4 pg (28.0-33.3); Mean Corpuscular Volume 88.5 fL (83.0-100.0); Mean Platelet Volume 10.2 fL (9.4-12.4); Monocytes # 0.5 K/mcL (0.0-1.3); Monocytes % 9.3 %; Platelet Count 258 K/mcL (140-400); Red Cell Distribution Width 14.1 % (11.5-14.5); Segmented Neutrophils % 36.9 %
[2016-10-16 05:29] LABS: BUN/Creatinine Ratio 36 (6-26); Blood Urea Nitrogen 37 mg/dL (7-20); Calcium 9.4 mg/dL (8.6-10.8); Carbon Dioxide 23 mEq/L (19-29); Chloride 105 mEq/L (98-109); Glucose 115 mg/dL (70-99); Osmolality,Calculated 296 (280-300); Potassium 4.3 mEq/L (3.5-4.5); Sodium 138 mEq/L (136-145); eGFR For African Americans > 60 (> 60); eGFR For Non-African Americans 52 (> 60)
[2016-10-16] MEDS: Fenofibrate 54 MG TABLET PO SCH (08:52)
[2016-10-16] MEDS: *HR* Metformin 500 MG TABLET PO SCH ×2 (08:53→16:51)
[2016-10-16] MEDS: Sennosides/Docusate Sodium TABLET PO SCH (08:53)
[2016-10-16] MEDS: *HR* GlipiZIDE 5 MG TABLET PO SCH ×2 (08:53→21:16)
[2016-10-16] MEDS: Aspirin 325 MG TABLET PO SCH (08:54)
[2016-10-16] MEDS: Insulin LISPRO 300 UNITS/3 ML VIAL SQ SCH ×4 (09:06→21:12)
[2016-10-16] MEDS: Ketoconazole 2% CRM 15 GM TUBE TP SCH (09:07)
[2016-10-16] MEDS: (Desvenlafaxine Succinate [Pristiq] 50 MG) PO SCH (09:07)
--- NOTE | 2016-10-16 15:30 | Internal Med Progress Note ---
Date of Encounter: 10/16/16 Time of Encounter: 15:00 - Assessment and plan (1) CVA (cerebral vascular accident) Current Visit: Yes Status: Acute Assessment and plan: Patient had CVA after total knee Qualifiers: CVA mechanism: unspecified Qualified Code(s): I63.9 - Cerebral infarction, unspecified (2) Total knee replacement status Current Visit: Yes Status: Acute Assessment and plan: Patient had totally replacement for away Qualifiers: Laterality: right Qualified Code(s): Z96.651 - Presence of right artificial knee joint - Time Spent With Patient less than 15 minutes - Subjective Interval history: Patient had no complaints is ambulating with her walker is getting up and down on her own much improved overall. Patient is smiling more since the murmurs improved - Constitutional Vitals: Temp Pulse Resp BP Pulse Ox 98.1 F 55 16 109/58 92 L 10/16/16 06:31 10/16/16 09:23 10/16/16 09:23 10/16/16 09:23 10/16/16 09:23 General appearance: Present: A&O X 2, pleasant, no acute distress - Head Head exam: Present: atraumatic, normal inspection, normocephalic - Neck Neck exam general surgery: Present: supple, trachea midline. Absent: lymphadenopathy - Respiratory Respiratory exam: Present: CTAB. Absent: accessory muscle use, rales, rhonchi, wheezes - Cardiovascular Cardiovascular exam: Present: RRR, +S1, +S2. Absent: diastolic murmur, gallop, rubs, systolic murmur - GI/Abdominal GI/Abdominal exam: Present: normal bowel sounds, soft, no peritoneal signs. Absent: distended, tenderness Internal Medicine: Result - Labs CBC & Chem 7: 10/16/16 05:05 10/16/16 05:05 Labs: Short CBC 10/16/16 Range/Units 05:05 WBC 5.4 (4.3-11.1) K/mcL Hgb 9.3 L (11.5-15.4) g/dL Hct 30.1 L (35.3-44.9) % Plt Count 258 (140-400) K/mcL Neutrophils # 2.0 (1.6-8.9) K/mcL BMP 10/16/16 05:05 Sodium 138 Potassium 4.3 Chloride 105 Carbon Dioxide 23 BUN 37 H Creatinine 1.03 Glucose 115 H Calcium 9.4 I have a stable - ABG Interpretation ABG results: PT/INR, D-dimer PT 13.7 Seconds (9.4-12.1) H 09/23/16 05:20 - VTE Documentation of Mechanical Device: Graduated compression elastic hosiery Consult Discharge Plan - Plan Referrals: Ashly Cho MD [Primary Care Provider] -
[2016-10-16] MEDS: Insulin DETEMIR 100 UNIT/ML X5UNITS SQ SCH (21:21)
[2016-10-17] MEDS: *HR* OxyCODONE/APAP 7.5/325 TABLET PO PRN ×5 (04:36→21:33)
[2016-10-17] MEDS: Insulin LISPRO 300 UNITS/3 ML VIAL SQ SCH ×4 (07:51→21:32)
[2016-10-17] MEDS: Sennosides/Docusate Sodium TABLET PO SCH (07:52)
[2016-10-17] MEDS: (Desvenlafaxine Succinate [Pristiq] 50 MG) PO SCH (07:52)
[2016-10-17] MEDS: Aspirin 325 MG TABLET PO SCH (07:59)
[2016-10-17] MEDS: *HR* GlipiZIDE 5 MG TABLET PO SCH ×2 (07:59→21:32)
[2016-10-17] MEDS: Fenofibrate 54 MG TABLET PO SCH (07:59)
[2016-10-17] MEDS: Ketoconazole 2% CRM 15 GM TUBE TP SCH (08:00)
[2016-10-17] MEDS: *HR* Metformin 500 MG TABLET PO SCH ×2 (08:00→16:53)
--- NOTE | 2016-10-17 13:29 | Internal Med Progress Note ---
Date of Encounter: 10/17/16 Time of Encounter: 13:00 - Assessment and plan (1) CVA (cerebral vascular accident) Current Visit: Yes Status: Acute Assessment and plan: Patient had a CVA after her surgery for knee replacement Qualifiers: CVA mechanism: unspecified Qualified Code(s): I63.9 - Cerebral infarction, unspecified (2) Total knee replacement status Current Visit: Yes Status: Acute Assessment and plan: Ration her total knee replacement for osteoarthritis. Qualifiers: Laterality: right Qualified Code(s): Z96.651 - Presence of right artificial knee joint - Time Spent With Patient less than 15 minutes - Subjective Interval history: Patient had no complaints is ambulating with her walker is getting up and down on her own much improved overall. Patient is smiling more . - Constitutional Vitals: Temp Pulse Resp BP Pulse Ox 97.7 F 59 16 120/67 92 L 10/17/16 07:00 10/17/16 07:00 10/17/16 07:00 10/17/16 07:00 10/17/16 07:00 General appearance: Present: A&O X 2, pleasant, no acute distress - Head Head exam: Present: atraumatic, normal inspection, normocephalic - Respiratory Respiratory exam: Present: CTAB. Absent: accessory muscle use, rales, rhonchi, wheezes - Cardiovascular Cardiovascular exam: Present: RRR, +S1, +S2. Absent: diastolic murmur, gallop, rubs, systolic murmur Internal Medicine: Result - Labs CBC & Chem 7: 10/16/16 05:05 10/16/16 05:05 Labs: Lab is stable - ABG Interpretation ABG results: PT/INR, D-dimer PT 13.7 Seconds (9.4-12.1) H 09/23/16 05:20 - VTE Documentation of Mechanical Device: Graduated compression elastic hosiery Consult Discharge Plan - Plan Referrals: Ashly Cho MD [Primary Care Provider] - Dima Gonzales [Non-Partnered Physician] - 11/02/16 10:00 am (at the [facility])
[2016-10-17] MEDS: Insulin DETEMIR 100 UNIT/ML X5UNITS SQ SCH (21:33)
[2016-10-18] MEDS: *HR* OxyCODONE/APAP 7.5/325 TABLET PO PRN ×4 (05:30→21:48)
[2016-10-18] MEDS: Insulin LISPRO 300 UNITS/3 ML VIAL SQ SCH ×4 (07:44→21:46)
[2016-10-18] MEDS: Sennosides/Docusate Sodium TABLET PO SCH (08:44)
[2016-10-18] MEDS: Aspirin 325 MG TABLET PO SCH (08:44)
[2016-10-18] MEDS: *HR* GlipiZIDE 5 MG TABLET PO SCH ×2 (08:45→21:46)
[2016-10-18] MEDS: Fenofibrate 54 MG TABLET PO SCH (08:45)
[2016-10-18] MEDS: *HR* Metformin 500 MG TABLET PO SCH ×2 (08:45→17:42)
[2016-10-18] MEDS: Ketoconazole 2% CRM 15 GM TUBE TP SCH (08:46)
[2016-10-18] MEDS: (Desvenlafaxine Succinate [Pristiq] 50 MG) PO SCH (08:47)
--- NOTE | 2016-10-18 13:37 | Internal Med Progress Note ---
Date of Encounter: 10/18/16 Time of Encounter: 14:00 - Assessment and plan (1) CVA (cerebral vascular accident) Current Visit: Yes Status: Acute Assessment and plan: Marcin has a stroke after her total knee replacement. She is 500% better than on admission Qualifiers: CVA mechanism: unspecified Qualified Code(s): I63.9 - Cerebral infarction, unspecified (2) Total knee replacement status Current Visit: Yes Status: Acute Qualifiers: Laterality: right Qualified Code(s): Z96.651 - Presence of right artificial knee joint - Time Spent With Patient less than 15 minutes - Subjective Interval history: Patient had no complaints is ambulating with her walker is getting up and down on her own much improved overall. Patient is smiling more . She is out today for home safety visit with the staff. - Constitutional Vitals: Temp Pulse Resp BP Pulse Ox 97.3 F L 65 16 131/75 94 L 10/18/16 07:26 10/18/16 07:26 10/18/16 07:26 10/18/16 07:26 10/18/16 07:26 General appearance: Present: A&O X 2, pleasant, no acute distress - Head Head exam: Present: atraumatic, normocephalic - Neck Neck exam general surgery: Present: supple, trachea midline. Absent: lymphadenopathy - Respiratory Respiratory exam: Present: CTAB. Absent: accessory muscle use, rales, rhonchi, wheezes - Cardiovascular Cardiovascular exam: Present: RRR, +S1, +S2. Absent: diastolic murmur, gallop, rubs, systolic murmur - GI/Abdominal GI/Abdominal exam: Present: normal bowel sounds, soft, no peritoneal signs. Absent: distended, tenderness Internal Medicine: Result - Labs CBC & Chem 7: 10/16/16 05:05 10/16/16 05:05 Labs: Lab is stable - ABG Interpretation ABG results: PT/INR, D-dimer PT 13.7 Seconds (9.4-12.1) H 09/23/16 05:20 - VTE Documentation of Mechanical Device: Graduated compression elastic hosiery Consult Discharge Plan - Plan Referrals: Ashly Cho MD [Primary Care Provider] - 10/26/16 1:30 pm (plseas bring discharge summary) Dima Gonzales [Non-Partnered Physician] - 11/02/16 10:00 am (at the [facility])
[2016-10-18] MEDS: Insulin DETEMIR 100 UNIT/ML X5UNITS SQ SCH (21:47)
[2016-10-19] MEDS: *HR* OxyCODONE/APAP 7.5/325 TABLET PO PRN ×2 (05:35→11:53)
[2016-10-19 07:07] VITALS: BP 105/55
[2016-10-19] MEDS: Insulin LISPRO 300 UNITS/3 ML VIAL SQ SCH ×2 (08:34→11:54)
[2016-10-19] MEDS: *HR* Metformin 500 MG TABLET PO SCH (09:03)
[2016-10-19] MEDS: Aspirin 325 MG TABLET PO SCH (09:04)
[2016-10-19] MEDS: Sennosides/Docusate Sodium TABLET PO SCH (09:04)
[2016-10-19] MEDS: Fenofibrate 54 MG TABLET PO SCH (09:04)
[2016-10-19] MEDS: *HR* GlipiZIDE 5 MG TABLET PO SCH (09:04)
[2016-10-19] MEDS: (Desvenlafaxine Succinate [Pristiq] 50 MG) PO SCH (09:05)
[2016-10-19] MEDS: Ketoconazole 2% CRM 15 GM TUBE TP SCH (09:05)
--- NOTE | 2016-10-19 14:02 | Discharge Summary ---
Date of Encounter: 10/18/16 Time of Encounter: 14:00 - Discharge Diagnosis (1) CVA (cerebral vascular accident) Priority: Primary Status: Acute Comments: Mrs. Bartholomew had a CVA after a total knee replacement surgery. Qualifiers: CVA mechanism: unspecified Qualified Code(s): I63.9 - Cerebral infarction, unspecified (2) Total knee replacement status Priority: Primary Status: Acute Comments: He had had the total knee replacement for osteoarthritis. Qualifiers: Laterality: right Qualified Code(s): Z96.651 - Presence of right artificial knee joint - Discharge Medications Home Medications: Amlodipine [Norvasc] 5 mg PO DAILY 09/22/16 [History] Aspirin 325 mg PO DAILY 09/22/16 [History] Desvenlafaxine Succinate [Pristiq ER] 50 mg PO DAILY 09/22/16 [History] Fenofibrate [Lofibra] 160 mg PO DAILY 09/22/16 [History] GlipiZIDE [Glucotrol] 5 mg PO HS 09/22/16 [History] GlipiZIDE [Glucotrol] 10 mg PO 0800 09/22/16 [History] Insulin DETEMIR [Levemir] 30 unit SQ HS 09/22/16 [History] Lisinopril [Zestril] 10 mg PO DAILY 09/22/16 [History] Metformin [Glucophage] 500 mg PO BIDWM 09/22/16 [History] OxyCODONE/APAP 7.5/325 [Percocet 7.5/325 MG] 1 each PO Q4HR PRN 09/22/16 [ History] Polyethylene Glycol 3350 [MiraLAX Powder Bulk 17.9 Oz] 17 gm PO DAILY 09/22/16 [ History] Potassium Chloride [Klor-Con 10] 10 meq PO BID 09/22/16 [History] Sennosides/Docusate Sodium [Senna Plus] 2 each PO DAILY 09/22/16 [History] Simvastatin [Zocor] 20 mg PO HS 09/22/16 [History] Allergies/Adverse Reactions: Allergies Sulfa (Sulfonamide Antibiotics) Allergy (Verified 09/22/16 16:17) Rash Date of admission: 09/22/16 15:43 Primary care physician: Ashly Cho MD Consults: 09/22/16 16:21 Consult to Occupational Therapy [CONS] Routine Comment: Evaluate, develop and implement POC Consult to Physical Therapy [CONS] Routine Comment: Evaluate, develop and implement POC Consult to Recreational Therapy [CONS] Routine Comment: Evaluate, develop and implement POC Consult to Speech Therapy [CONS] Routine Comment: Evaluate, develop and implement POC Reason for Consult: CVA Call Completed: Yes 09/25/16 13:36 Consult to Psychology [CONS] Routine Consulting Provider: Yohana Steiner Reason for Consult: anxiety Time Notified: 13:30 Call Completed: No Discharging clinician: Devendra Vigil Anticipated date of discharge: 10/19/16 - Patient Status Disposition: Home, Self-Care Condition: Good Functional capacity at discharge: uses cane/walker Overall status at discharge: patient is progressing back to baseline - Discharge Instructions Follow Up With: Ashly Cho MD [Primary Care Provider] - 10/26/16 1:30 pm (plseas bring discharge summary) Dima Gonzales [Non-Partnered Physician] - 11/02/16 10:00 am (at the [facility]) - Diet and Activity Activity: ambulate only with your walker Diet: advance to your usual diet Interval History: Patient is done very well. When she arrived she had trouble sitting up last morning standing. Now she is ambulating length of the [place] with her walker. will be accompanying her upon discharge Hospital course: Ms. Bartholomew is a 76 year old female Who suffered a CVA after total knee replacement has done very well - Time Spent with Patient Total time spent providing and/or coordinating discharge services: Less than 30 minutes - Constitutional Vitals: Temp Pulse Resp BP Pulse Ox 97.0 F L 60 18 105/55 93 L 10/19/16 07:06 10/19/16 07:06 10/19/16 07:06 10/19/16 07:06 10/19/16 07:06 General appearance: Present: A&O X 2, pleasant, no acute distress - Head Head exam: Present: atraumatic, normal inspection, normocephalic - Neck Neck exam general surgery: Present: supple, trachea midline. Absent: lymphadenopathy - Respiratory Respiratory exam: Present: CTAB. Absent: accessory muscle use, rales, rhonchi, wheezes - Cardiovascular Cardiovascular exam: Present: RRR, +S1, +S2. Absent: diastolic murmur, gallop, rubs, systolic murmur - GI/Abdominal GI/Abdominal exam: Present: normal bowel sounds, soft, no peritoneal signs. Absent: distended, tenderness - VTE Documentation of Mechanical Device: Graduated compression elastic hosiery
== END 2016-10-19 15:20 | disposition home or self-care (01) | DRG 57 ==
LOC: INPGRE 15:43
PROVIDERS: ADMIT Internal Medicine; ATTEND Internal Medicine

== ENCOUNTER 2018-05-11 09:58 | Observation (INO) ==
[2018-05-11] MEDS ORDERED: Ibuprofen 600 MG TABLET PO ONE (10:33)
--- NOTE | 2018-05-11 10:33 | Emergency Department Note ---
Disposition Clinical Impression: Community acquired pneumonia Disposition: Admitted As Inpatient Referrals: Ashly Cho MD [Primary Care Provider] - Forms: ED Satisfaction Letter SOB HPI - General Chief Complaint: ED Shortness of Breath/Dyspnea Stated Complaint: possible pneumonia Time Seen by Provider: 05/11/18 10:09 Source: patient, family Mode of arrival: private vehicle Limitations: no limitations Nursing Notes Reviewed: Yes Vital Signs Reviewed: Yes - History of Present Illness Patient presents to the ED with concern that she may have pneumonia. She reports a productive cough and shortness of breath over the past 4 days. Cough has produced green sputum that is occasionally blood-tinged. She reports sore throat and sneezing but no nasal congestion or rhinorrhea. She does also report tightness and heaviness in her chest and pain when she takes a deep breath. She reports a subjective fever at home but has not actually taken her temperature. She took 2 Tylenol at 9 AM. She reports one episode of emesis when she first became ill 4 days ago. Since then she has had some watery diarrhea. She reports a decreased appetite as well as generalized body aches. No urinary sy mptoms. No rash. She does have a headache as well. States she just had pneumonia a month ago that was treated by her PCP with a 10 day course of oral antibiotics. States she finished these approximately 2 weeks ago and was feeling better until just a few days ago. She denies any recent travel or other sick contacts other than a grandson with a sore throat. She is not a smoker. She has remote history of asthma but is not routinely on any medications for it. No history of emphysema or COPD. She does not wear oxygen at home but had a saturation of 88% on room air on arrival. She states she got a pneumonia shot this year but not a flu vaccine. - Related Data Home Medications Medication Instructions Recorded Confirmed Desvenlafaxine Succinate [Pristiq 50 mg PO DAILY 09/22/16 05/11/18 ER] Lisinopril [Zestril] 10 mg PO DAILY 09/22/16 05/11/18 Potassium Chloride [Klor-Con 10] 10 meq PO BID 09/22/16 05/11/18 Simvastatin [Zocor] 20 mg PO HS 09/22/16 05/11/18 amLODIPine [Norvasc] 5 mg PO DAILY 09/22/16 05/11/18 glipiZIDE [Glucotrol] 5 mg PO HS 09/22/16 05/11/18 glipiZIDE [Glucotrol] 10 mg PO 0800 09/22/16 05/11/18 metFORMIN [Glucophage] 500 mg PO BIDWM 09/22/16 05/11/18 Meloxicam [Mobic] 15 mg PO DAILY 05/11/18 05/11/18 Allergies Allergy/AdvReac Type Severity Reaction Status Date / Time Sulfa (Sulfonamide Allergy Rash Verified 05/11/18 10:13 Antibiotics) Constitutional: Reports: as per HPI, fever (subjective) Eyes: Denies: eye pain, eye discharge, vision change ENT ED: Reports: throat pain. Denies: ear pain, dental pain, hearing loss, epistaxis, congestion, dysphagia Cardiovascular: Denies: chest pain, palpitations, dyspnea on exertion, edema, syncope Respiratory: Reports: as per HPI, cough, dyspnea, sputum production. Denies: wheezes, hemoptysis, stridor Gastrointestinal: Reports: as per HPI, diarrhea. Denies: abdominal pain, nausea, vomiting, constipation, hematemesis, melena, hematochezia Genitourinary: Denies: dysuria, frequency, hematuria, discharge Musculoskeletal: Reports: myalgia (generalized body aches). Denies: back pain, neck pain, arthralgia Integumentary: Denies: rash, abrasion, lesions Neurological: Denies: headache, weakness, numbness, paresthesias, confusion, abnormal gait, vertigo Psychiatric: Denies: anxiety, depression, suicidal thoughts, homicidal thoughts, auditory hallucinations, visual hallucinations Endocrine: Denies: fatigue Hematological/Lymphatic: Denies: easy bleeding, easy bruising Allergic/Immunologic: Denies: facial swelling, urticaria Past Medical History - Past Medical History Medical history: Reports: arthritis, CVA, diabetes, hyperlipidemia, hypertension, other Surgical history: Reports: hysterectomy, knee replacement Psychiatric history: Reports: no psych history - Social History Smoking Status: Never smoker Smokeless Tobacco Status: No Alcohol use: Reports: none Drug use: Reports: none Physical Exam - General Limitations: no limitations General appearance: alert, in no apparent distress, obese - Head Head exam: atraumatic, normocephalic, normal inspection - Eye Eye exam: Present: normal appearance, PERRL, EOMI - ENT ENT exam: normal exam, mucous membranes moist, TM's normal bilaterally, normal external ear exam - Expanded ENT Exam Nose exam: negative: rhinorrhea Throat exam: Present: tonsillar erythema. Absent: tonsillomegaly, tonsillar exudate, R peritonsillar mass, L peritonsillar mass - Neck Neck exam: Present: normal inspection, full ROM, trachea midline. Absent: lymphadenopathy - Chest Chest inspection: Present: normal inspection, symmetric chest wall rise - Respiratory Respiratory exam: Present: normal lung sounds bilaterally. Absent: respiratory distress, accessory muscle use - Cardiovascular Cardiovascular exam: Present: regular rate, normal rhythm, normal heart sounds - Abdominal Exam Abdominal exam: Present: soft, Non-Tender. Absent: tenderness, distention, guarding, rebound, rigidity - Extremities Exam Extremities exam: Present: normal inspection, full ROM. Absent: tenderness, pedal edema - Back Exam Back exam: Present: normal inspection, full ROM. Absent: tenderness - Neurological Exam Neurological exam: Present: alert, oriented X3 - Psychiatric Psychiatric exam: Present: normal affect, normal mood - Skin Skin exam: Present: warm, dry, intact, normal color Course Course Narrative: Patient presents to the ED with 4 days of productive cough, shortness of breath, subjective fever, myalgias and chest discomfort concerning for pneumonia or possibility of influenza versus less likely simple URI or bronchitis. She is mildly hypoxemic on arrival but afebrile and not in any respiratory distress. Oxygen saturations improved into the 90s on 2 L via nasal cannula. Will obtain laboratory studies and chest x-ray for further evaluation. I did discuss with patient likeliness that she may require admission due to her oxygen requirements at this time. - Reevaluation(s) Reevaluation #1: Chest x-ray is negative. Flu swab is negative. EKG shows sinus rhythm with no acute ischemic changes. Laboratory studies show a normal white count but a mildly elevated lactic acid 2.3. Electrolytes are normal along with troponin and BNP. Clinically appears to be a pneumonia despite the negative reading of her chest x-ray. Will treat with IV fluids and antibiotics. Discussed with patient need for admission given her low oxygenation and she is in agreement. I spoke to the hospitalist on-call, Dr. Marquez who agreed to admit the patient pending a CT of the chest to investigate further for an occult pneumonia or other underlying process as there should still be a visible pneumonia if patient was just treated for pneumonia 2 weeks ago. Will contact patient's pharmacy for further information on her recent antibiotic use. Time: 11:15 Reevaluation #2: Per patient's pharmacy her last antibiotic prescription was a 10 day course of Levaquin back in January. When I questioned the patient further she states this must have been when she had pneumonia. She denies any more recent prescriptions at any other pharmacy. Time: 11:24 Vital Signs Temperature 97.6 F 05/11/18 10:10 Pulse Rate 91 05/11/18 10:10 Respiratory Rate 16 05/11/18 10:10 Blood Pressure 174/91 05/11/18 10:10 O2 Sat by Pulse Oximetry 93 05/11/18 10:10 Temperature 97.6 F 05/11/18 10:10 Pulse Rate 91 05/11/18 10:10 Respiratory Rate 16 05/11/18 10:10 Blood Pressure 174/91 05/11/18 10:10 O2 Sat by Pulse Oximetry 93 05/11/18 10:35 Oxygen Delivery Oxygen Delivery Nasal Cannula Shortness of Breath/Dyspnea - Differential Diagnosis Likely: pneumonia (versus influenze). Unlikely: congestive heart failure, pulmonary embolism - Medical Records Medical records reviewed: Yes I reviewed the patient's medical records. - Lab Data Lab results reviewed: Yes I reviewed the patient's lab results. Result diagrams: 05/11/18 10:30 05/11/18 10:30 Lab Results 05/11/18 05/11/18 05/11/18 Range/Units 10:30 10:30 10:30 WBC 10.6 (4.3-11.1) K/mcL RBC 4.57 (3.82-4.97) M/mcL Hgb 12.7 (11.5-15.4) g/dL Hct 39.3 (35.3-44.9) % MCV 86.0 (83.0-100.0) fL MCH 27.8 L (28.0-33.3) pg MCHC 32.3 (31.6-35.5) g/dL RDW 14.8 H (11.5-14.5) % Plt Count 279 (140-400) K/mcL MPV 9.7 (9.4-12.4) fL Immature Gran % 0.3 (0-4) % Seg Neutrophils % 65.7 % Lymphocytes % 24.3 % Monocytes % 6.1 % Eosinophils % 3.1 % Basophils % 0.5 % Neutrophils # 7.0 (1.6-8.9) K/mcL Lymphocytes # 2.6 (0.6-4.6) K/mcL Monocytes # 0.7 (0.0-1.3) K/mcL Eosinophils # 0.3 (0.0-0.6) K/mcL Basophils # 0.1 (0.0-0.2) K/mcL Sodium 138 (136-145) mEq/L Potassium 4.1 (3.5-5.1) mEq/L Chloride 101 (98-107) mEq/L Carbon Dioxide 25 (23-29) mEq/L BUN 14 (8-23) mg/dL Creatinine 0.88 (0.60-1.20) mg/dL Est GFR ( Amer) > 60 (> 60) Est GFR (Non-Af Amer) > 60 (> 60) BUN/Creatinine Ratio 16 (6-26) Glucose 211 H (70-105) mg/dL Calculated Osmolality 293 (280-300) Lactic Acid 2.3 H (0.5-2.2) mmol/L Calcium 9.5 (8.6-10.3) mg/dL Troponin I < 0.03 (< 0.04) ng/mL B-Natriuretic Peptide (Less than 100) pg/mL 05/11/18 Range/Units 10:30 WBC (4.3-11.1) K/mcL RBC (3.82-4.97) M/mcL Hgb (11.5-15.4) g/dL Hct (35.3-44.9) % MCV (83.0-100.0) fL MCH (28.0-33.3) pg MCHC (31.6-35.5) g/dL RDW (11.5-14.5) % Plt Count (140-400) K/mcL MPV (9.4-12.4) fL Immature Gran % (0-4) % Seg Neutrophils % % Lymphocytes % % Monocytes % % Eosinophils % % Basophils % % Neutrophils # (1.6-8.9) K/mcL Lymphocytes # (0.6-4.6) K/mcL Monocytes # (0.0-1.3) K/mcL Eosinophils # (0.0-0.6) K/mcL Basophils # (0.0-0.2) K/mcL Sodium (136-145) mEq/L Potassium (3.5-5.1) mEq/L Chloride (98-107) mEq/L Carbon Dioxide (23-29) mEq/L BUN (8-23) mg/dL Creatinine (0.60-1.20) mg/dL Est GFR ( Amer) (> 60) Est GFR (Non-Af Amer) (> 60) BUN/Creatinine Ratio (6-26) Glucose (70-105) mg/dL Calculated Osmolality (280-300) Lactic Acid (0.5-2.2) mmol/L Calcium (8.6-10.3) mg/dL Troponin I (< 0.04) ng/mL B-Natriuretic Peptide 80 (Less than 100) pg/mL - Radiology Data Radiology results reviewed: Yes I reviewed the patient's radiology results. ITS Impressions Chest X-Ray 05/11/18 10:24 IMPRESSION: No acute findings. D/ / Nacho Nguyễn MD / Nacho Nguyễn MD Interpreting Provider: Nacho Nguyễn MD ITS Impressions Chest X-Ray 05/11/18 10:24 IMPRESSION: No acute findings. D/ / 05/11/2018 11:54:03 Nacho Nguyễn MD / bcarter Interpreting Provider: Nacho Nguyễn MD Chest CTA 05/11/18 11:17 IMPRESSION: 1. No findings of pulmonary embolism. 2. Findings potentially related to pulmonary hypertension. 3. Minimal bronchial wall thickening potentially due to pulmonary vascular congestion, reactive airways disease, or bronchitis. 4. Unchanged 0.7 cm x 0.6 cm solid nodule in the left upper lobe, potentially infectious, inflammatory, or neoplastic in etiology. A sequela of an infectious or inflammatory process is favored given lack of growth. No additional follow-up is recommended per the Fleischner Society recommendations for solid pulmonary nodules as below. 5. A few additional incidental findings as above for which no follow-up is recommended. RECOMMENDATIONS: Fleischner Society guidelines for follow-up and management of incidentally detected pulmonary nodules: Single Solid Nodule: Nodule size equals 6-8 mm In a high-risk patient, CT at 6-12 months (completed), then CT at 18-24 months (completed). Radiology 2017 http://pubs.rsna.org/doi/full/10.1148/radiol.3695460430 Managing Incidental Thyroid Nodule Detected at CT or MRI or US 1. Further evaluation by thyroid Ultrasound recommended for these incidental nodules: Patient Age 35 years or more - Nodule 1.5 cm in size or greater 3. NO further imaging is recommended in the following scenarios - Any nodule not meeting above criteria. - Those patients with limited life expectancy or significant comorbidities. Note: These recommendations do not apply to pts. w/ increased risk for thyroid cancer or pts. with symptomatic thyroid disease. Recommendations for f/u of Incidental Thyroid Nodules (ITN) found on CT, MR, NM and Extrathyroidal US are based upon the ACR white paper and Shi 3-tiered system for managing ITNs: J Am Destinee Radiol. 2014;12(2): 143-50 D/ / Kristopher Rendon MD / Kristopher Rendon MD Interpreting Provider: Kristopher Rendon MD - EKG Data EKG attestation: Yes I reviewed and interpreted this EKG. EKG shows normal: Reports: sinus rhythm Rate: Reports: normal Rhythm: Reports: NSR Trout/QRS: Reports: normal Interpretation: Reports: no acute changes, normal EKG, unchanged when compared to prior tracing (date) (10/27/16), nonspecific ST-T wave changes
[2018-05-11 10:52] LABS: Basophils # 0.1 K/mcL (0.0-0.2); Basophils % 0.5 %; Eosinophils # 0.3 K/mcL (0.0-0.6); Eosinophils % 3.1 %; Hematocrit 39.3 % (35.3-44.9); Hemoglobin 12.7 g/dL (11.5-15.4); Immature Granulocytes % 0.3 % (0-4); Lymphocytes # 2.6 K/mcL (0.6-4.6); Lymphocytes % 24.3 %; Mean Corpuscular HGB Conc 32.3 g/dL (31.6-35.5); Mean Corpuscular Hemoglobin 27.8 pg (28.0-33.3); Mean Platelet Volume 9.7 fL (9.4-12.4); Monocytes # 0.7 K/mcL (0.0-1.3); Monocytes % 6.1 %; Platelet Count 279 K/mcL (140-400); Red Blood Count 4.57 M/mcL (3.82-4.97); Red Cell Distribution Width 14.8 % (11.5-14.5); Segmented Neutrophils % 65.7 %
[2018-05-11 11:05] LABS: BUN/Creatinine Ratio 16 (6-26); Blood Urea Nitrogen 14 mg/dL (8-23); Calcium 9.5 mg/dL (8.6-10.3); Carbon Dioxide 25 mEq/L (23-29); Chloride 101 mEq/L (98-107); Glucose 211 mg/dL (70-105); Osmolality,Calculated 293 (280-300); Potassium 4.1 mEq/L (3.5-5.1); Sodium 138 mEq/L (136-145); eGFR For Non-African Americans > 60 (> 60)
[2018-05-11 11:06] LABS: Troponin I < 0.03 ng/mL (< 0.04)
[2018-05-11] MEDS ORDERED: Levofloxacin 750 MG/150 ML 750 MG/150 ML BAG IVPB ONE (11:07)
[2018-05-11] MEDS ORDERED: 0.9 % Sodium Chloride 1,000 ML IVC ONE (11:07)
[2018-05-11] MEDS ORDERED: Isovue-370 500 ML INFUS..BTL IV ONE ×2 (11:17→12:49)
[2018-05-11] MEDS ORDERED: Naloxone 0.4 MG/ML INJ IVP PRN ×2 (12:18→12:49)
[2018-05-11] MEDS ORDERED: Dextrose Gel 15 GM/37.5 ML TUBE PO PRN ×4 (12:21→12:49)
[2018-05-11] MEDS ORDERED: D5% in Water 1,000 ML IVC PRN ×2 (12:21→12:49)
[2018-05-11] MEDS ORDERED: *HR* Dextrose 50 % in Water (Syg) 50 ML SYRINGE IVP PRN ×2 (12:21→12:49)
[2018-05-11] MEDS ORDERED: 0.9 % Sodium Chloride 1,000 ML IVC SCH (12:30)
[2018-05-11] MEDS ORDERED: Insulin LISPRO 300 UNITS/3 ML VIAL SQ SCH ×2 (16:30→21:00)
--- NOTE | 2018-05-11 17:13 | Internal Med History&Physical ---
Date of Encounter: 05/11/18 Time of Encounter: 16:40 Assessment and Plan (1) Shortness of breath Current visit: Yes Status: Acute Potentially 2/2 PNA. - Levofloxacin for now, incentive spirometry, sputum culture, oxygen support as needed, wean oxygen as tolerated. - F/U on blood cultures. (2) Chest pain Current visit: Yes Status: Acute Intermediate HEART score. Potentially PNA-related, but cardiac origin cannot be completely excluded at this time. - EKG, tele, trend troponin, FLP, A1c. - Depending on clinical progression, might need a stress test after the weekend. Qualifiers: Qualified Code(s): R07.89 - Other chest pain; R07.8 - Other chest pain (3) Hypertension Current visit: Yes Status: Chronic Continue home amlodipine and lisinopril. Will monitor and adjust as appropriate. Qualifiers: Hypertension type: essential hypertension Qualified Code(s): I10 - Essential (primary) hypertension (4) Hyperlipidemia Current visit: Yes Status: Acute Continue home simvastatin. Qualifiers: Hyperlipidemia type: other hyperlipidemia Qualified Code(s): E78.49 - Other hyperlipidemia; E78.4 - Other hyperlipidemia (5) Diabetes Current visit: No Status: Chronic Hold off on metformin. Will add SSI and hypoglycemia protocol. Qualifiers: Diabetes mellitus type: type 2 Diabetes mellitus director long term care insulin use: with director long term care use Diabetes mellitus complication status: with circulatory complication Diabetes mellitus complication detail: with other circulatory complications Qualified Code(s): E11.59 - Type 2 diabetes mellitus with other circulatory complications; Z79.4 - MCC (current) use of insulin Internal Medicine - H&P: HPI Chief complaint: SOB Admitted From: Home Plans for Post Hospital Care: Home History of present illness: Ms. Bartholomew is a 78 year old female who presented to our ED with SOB for about 1 month, which has been associated with fever, chills, cough, greenish sputum production, n/v, and CP (retrosternal, sometimes radiating to the left breast, sharp at times, dull mostly, 0/10 currently, alleviated by resting, and exacerbated by exertion). Patient reports no palpitations, seizure, syncope, bruising or bleeding symptoms. Upon further questioning, the last time the patient had a cardiac stress test was years ago and she has never had a cardiac catheterization. Per the patient, she was treated for PNA in January of this year. In our ED, the patient was hypertensive and requiring 2LNC. Labs were significant for hyperglycemia. CXR was non-acute. CTA of the chest suggested pulmonary HTN and possibly an infection. Patient received NS, Motrin, l Past Med Surg Social Fam HX - Past Medical History Medical history: arthritis, CVA, diabetes, hyperlipidemia, hypertension, other Additional medical history: macular degeneration both eyes Psychiatric history: no psych history - Past Surgical History Surgical History: hysterectomy, knee replacement - Social History Smoking Status: Never smoker Smokeless Tobacco Status: No Alcohol use: none Drug use: none - Additional Family History Additional family history: Mother had an ND prior to 65yo (in the 40's) Internal Medicine - H&P: Meds Desvenlafaxine Succinate [Pristiq ER] 50 mg PO DAILY 09/22/16 [History] Lisinopril [Zestril] 10 mg PO DAILY 09/22/16 [History] Potassium Chloride [Klor-Con 10] 10 meq PO BID 09/22/16 [History] Simvastatin [Zocor] 20 mg PO HS 09/22/16 [History] amLODIPine [Norvasc] 5 mg PO DAILY 09/22/16 [History] glipiZIDE [Glucotrol] 5 mg PO HS 09/22/16 [History] glipiZIDE [Glucotrol] 10 mg PO 0800 09/22/16 [History] metFORMIN [Glucophage] 500 mg PO BIDWM 09/22/16 [History] Meloxicam [Mobic] 15 mg PO DAILY 05/11/18 [History] Allergy/AdvReac Type Severity Reaction Status Date / Time Sulfa (Sulfonamide Allergy Rash Verified 05/11/18 10:13 Antibiotics) All Systems PM: A 10-system review of systems was performed and is negative for pertinent findin gs except as documented above in the HPI. - Constitutional Vitals: Temp Pulse Resp BP Pulse Ox 99.5 F 82 18 178/81 93 05/11/18 16:24 05/11/18 16:24 05/11/18 16:24 05/11/18 16:24 05/11/18 16:24 Exam: Gen: A&Ox3, NAD. HEENT: NCAT. Neck: No palpable lymphadenopathy or thyromegaly. CV: RRR, S1S2. No murmur. Lungs: Adequate air exchange with mild, bibasilar crackles. Abd: (+)BS. NDNT. Neuro: Non-focal. Skin: No rash. Ext: No pitting edema. Internal Med - H&P Results - Labs CBC & Chem 7: 05/11/18 10:30 05/11/18 10:30 Labs: Short CBC 05/11/18 Range/Units 10:30 WBC 10.6 (4.3-11.1) K/mcL Hgb 12.7 (11.5-15.4) g/dL Hct 39.3 (35.3-44.9) % Plt Count 279 (140-400) K/mcL Neutrophils # 7.0 (1.6-8.9) K/mcL BMP 05/11/18 10:30 Sodium 138 Potassium 4.1 Chloride 101 Carbon Dioxide 25 BUN 14 Creatinine 0.88 Glucose 211 H Calcium 9.5 Cardiac Enzymes 05/11/18 Range/Units 10:30 Troponin I < 0.03 (< 0.04) ng/mL - Impressions ITS Impressions Chest X-Ray 05/11/18 10:24 IMPRESSION: No acute findings. D/ / 05/11/2018 11:54:03 Nacho Nguyễn MD / jose antonio Interpreting Provider: Nacho Nguyễn MD Chest CTA 05/11/18 11:17 IMPRESSION: 1. No findings of pulmonary embolism. 2. Findings potentially related to pulmonary hypertension. 3. Minimal bronchial wall thickening potentially due to pulmonary vascular congestion, reactive airways disease, or bronchitis. 4. Unchanged 0.7 cm x 0.6 cm solid nodule in the left upper lobe, potentially infectious, inflammatory, or neoplastic in etiology. A sequela of an infectious or inflammatory process is favored given lack of growth. No additional follow-up is recommended per the Fleischner Society recommendations for solid pulmonary nodules as below. 5. A few additional incidental findings as above for which no follow-up is recommended. RECOMMENDATIONS: Fleischner Society guidelines for follow-up and management of incidentally detected pulmonary nodules: Single Solid Nodule: Nodule size equals 6-8 mm In a high-risk patient, CT at 6-12 months (completed), then CT at 18-24 months (completed). Radiology 2017 http://pubs.rsna.org/doi/full/10.1148/radiol.1169795177 Managing Incidental Thyroid Nodule Detected at CT or MRI or US 1. Further evaluation by thyroid Ultrasound recommended for these incidental nodules: Patient Age 35 years or more - Nodule 1.5 cm in size or greater 3. NO further imaging is recommended in the following scenarios - Any nodule not meeting above criteria. - Those patients with limited life expectancy or significant comorbidities. Note: These recommendations do not apply to pts. w/ increased risk for thyroid cancer or pts. with symptomatic thyroid disease. Recommendations for f/u of Incidental Thyroid Nodules (ITN) found on CT, MR, NM and Extrathyroidal US are based upon the ACR white paper and Shi 3-tiered system for managing ITNs: J Am Destinee Radiol. 2015 Aug;12(2): 143-50 D/ / Kristopher Rendon MD / Kristopher Rendon MD Interpreting Provider: Kristopher Rendon MD - VTE Reasons for not Prescribing Prophylaxis: Treatment not Indicated - Low risk for VTE
[2018-05-11] MEDS: *HR* HYDROcodone/Acet 5/325 mg TABLET PO PRN (17:25)
[2018-05-11] MEDS: Insulin LISPRO 300 UNITS/3 ML VIAL SQ SCH ×2 (17:27→20:26)
[2018-05-11] MEDS: 0.9 % Sodium Chloride 1,000 ML IVC SCH (17:46)
[2018-05-11] MEDS: *HR* GlipiZIDE 5 MG TABLET PO SCH (20:25)
[2018-05-12] MEDS: 0.9 % Sodium Chloride 1,000 ML IVC SCH (02:19)
[2018-05-12 05:23] LABS: Chol/HDL Ratio 4.1 (0-4.9)
[2018-05-12] MEDS: *HR* HYDROcodone/Acet 5/325 mg TABLET PO PRN ×3 (06:37→22:08)
[2018-05-12] MEDS ORDERED: amLODIPine 5 MG TABLET PO SCH (09:00)
[2018-05-12] MEDS: Levofloxacin 750 MG/150 ML 750 MG/150 ML BAG IVPB SCH (09:22)
[2018-05-12] MEDS: Insulin LISPRO 300 UNITS/3 ML VIAL SQ SCH ×4 (09:22→20:53)
[2018-05-12] MEDS: Desvenlafaxine Succinate [Pristiq] 50 MG PO SCH (09:23)
[2018-05-12] MEDS: *HR* GlipiZIDE 5 MG TABLET PO SCH ×2 (09:23→20:50)
--- NOTE | 2018-05-12 13:50 | Internal Med Progress Note ---
Date of Encounter: 05/12/18 Time of Encounter: 13:30 - Assessment and plan (1) Shortness of breath Current Visit: Yes Status: Acute Assessment and plan: Likely 2/2 PNA. - Levofloxacin for now, incentive spirometry, sputum culture, oxygen support as needed, wean oxygen as tolerated. - F/U on blood cultures. (2) Chest pain Current Visit: Yes Status: Acute Assessment and plan: Potentially 2/2 PNA. Intermediate HEART score. - EKG non-ischemic, troponin (-), LDL < 70, A1c in process. - Depending on clinical progression, might need a stress test after the weekend. Qualifiers: Qualified Code(s): R07.89 - Other chest pain; R07.8 - Other chest pain (3) Hypertension Current Visit: Yes Status: Chronic Assessment and plan: Continue home lisinopril. Will increase amlodipine from 5mg daily to 10mg daily. Qualifiers: Hypertension type: essential hypertension Qualified Code(s): I10 - Essential (primary) hypertension (4) Hyperlipidemia Current Visit: Yes Status: Acute Assessment and plan: Continue home simvastatin. Qualifiers: Hyperlipidemia type: other hyperlipidemia Qualified Code(s): E78.49 - Other hyperlipidemia; E78.4 - Other hyperlipidemia (5) Diabetes Current Visit: No Status: Chronic Assessment and plan: Hold off on metformin for now. Will add SSI and hypoglycemia protocol. 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 Qualifiers: Diarrhea type: unspecified type Qualified Code(s): R19.7 - Diarrhea, unspecified (7) Generalized weakness Current Visit: Yes Status: Acute Assessment and plan: Likely having to do with physical deconditioning. Will involve PT. - Time Spent With Patient less than 15 minutes - Subjective Interval history: Reports having some spasm. Would like stronger pain meds for back pain. Has also been having diarrhea prior to being admitted, and states diarrhea has improved since being here. - Constitutional Vitals: Temp Pulse Resp BP Pulse Ox 98.9 F 80 16 172/82 94 05/12/18 11:56 05/12/18 11:56 05/12/18 11:56 05/12/18 11:56 05/12/18 11:56 Exam: Gen: A&Ox3, NAD. HEENT: NCAT. Neck: No palpable lymphadenopathy or thyromegaly. CV: RRR, S1S2. No murmur. Capillary refill < 2 seconds. Lungs: Adequate air exchange with mild, bibasilar crackles. Abd: (+)BS. NDNT. Neuro: Generalized weakness, otherwise non-focal. Skin: No rash. Ext: No pitting edema. Internal Medicine: Result - Labs CBC & Chem 7: 05/11/18 10:30 05/11/18 10:30 Labs: Cardiac Enzymes 05/11/18 05/11/18 05/12/18 Range/Units 17:40 22:50 02:39 Troponin I < 0.03 < 0.03 < 0.03 (< 0.04) ng/mL - VTE Reasons for not Prescribing Prophylaxis: Treatment not Indicated - Low risk for VTE Consult Discharge Plan - Plan Referrals: Ashly Cho MD [Primary Care Provider] -
[2018-05-12] MEDS ORDERED: amLODIPine 5 MG TABLET PO ONE (13:55)
[2018-05-13 07:19] VITALS: BP 157/70
[2018-05-13] MEDS: *HR* GlipiZIDE 5 MG TABLET PO SCH (07:47)
[2018-05-13] MEDS: Desvenlafaxine Succinate [Pristiq] 50 MG PO SCH (07:49)
[2018-05-13] MEDS: Levofloxacin 750 MG/150 ML 750 MG/150 ML BAG IVPB SCH (07:50)
[2018-05-13] MEDS: Insulin LISPRO 300 UNITS/3 ML VIAL SQ SCH ×2 (07:59→14:27)
[2018-05-13] MEDS ORDERED: amLODIPine 5 MG TABLET PO SCH (09:00)
[2018-05-13] MEDS: *HR* HYDROcodone/Acet 5/325 mg TABLET PO PRN (09:29)
[2018-05-13 10:47] LABS: Estimated Average Glucose 223 mg/dl; Hemoglobin A1C 9.4 %
--- NOTE | 2018-05-13 11:10 | Discharge Summary ---
Addendum entered and electronically signed by Joni King MD 05/13/18 11:54: I have personally performed a face to face evaluation on this patient. I have r eviewed and agree with the care plan. History and Exam by me shows: Patient is back to baseline in terms of her breathing. She generally denies much cough and has no phlegm production and no hemoptysis. We note that she had adequate oxygen overnight. We will have her follow with family physician after a week's worth of antibiotics in the form of Levaquin 750 daily. She is having more spasm in her low back which she attributes to being in bed and we encouraged follow-up with her pain physician. Discussed care with other providers and/or nursing. Patient has no complaint of chest discomfort, dyspnea, orthopnea, palpitations, nausea or vomiting, constipation or diarrhea, other changes in bowel habits, difficulty with urination, rash or itching, or other new complaints, except as mentioned above. Review of systems is otherwise negative. Examination: (Except as mentioned above): General: In no apparent distress. Alert and oriented 3. Nondiaphoretic. Head: Atraumatic and normocephalic. Respiratory: No use of accessory muscles. Lungs are clear throughout. Normal airflow. Cardiovascular: Regular rate and rhythm without murmur appreciated. Abdomen: Bowel sounds are normal. No hepatosplenomegaly mass or tenderness appreciated. Obese and therefore difficult to palpate deeply. Extremities: No cyanosis clubbing or edema. Skin: Warm and non-diaphoretic with no new lesions noted. Spoke with physical therapy who would be glad to see her as an outpatient. Will defer to her family physician. Original Note: Orders not resulted at time of discharge: Pending orders 05/11/18 10:30 Culture,Blood [BC] Stat 05/11/18 17:29 Culture,Sputum with Gram Stain [RM] Routine Date of Encounter: 05/13/18 Time of Encounter: 11:10 - Discharge Diagnosis (1) Shortness of breath Priority: Primary Status: Acute Comments: Improving. Likely caused by secondary to pneumonia. Maintaining oxygen saturation on room air. Will continue Levaquin PO for 7 more days. Will discharge with rescue inhaler as needed. Follow up with PCP within one week. (2) Muscle spasm of back Priority: Secondary Status: Acute Comments: Continues to complain of low back muscle spasms. Does see pain doctor in [place]. Will order Zanaflex for one week. Instructed to make appointment with pain doctor. (3) Diabetes Priority: Secondary Status: Chronic Comments: Continue insulin. Monitor fingerstick blood sugar. Follow up with PCP. Qualifiers: Diabetes mellitus type: type 2 Diabetes mellitus detention insulin use: with detention use Diabetes mellitus complication status: with circulatory complication Diabetes mellitus complication detail: with other circulatory complications Qualified Code(s): E11.59 - Type 2 diabetes mellitus with other circulatory complications; Z79.4 - snf (current) use of insulin (4) Hypertension Priority: Secondary Status: Chronic Comments: Controlled with Norvasc. Monitor blood pressure. Follow up with PCP. Qualifiers: Hypertension type: essential hypertension Qualified Code(s): I10 - Essential (primary) hypertension (5) Generalized weakness Priority: Secondary Status: Acute Comments: Improving. CVA in the past. Follow up with PCP. Hospital course: Ms. Bartholomew is a 78 year old female discharging to home with . Was on inpatient unit after arriving to the emergency department with increased shortness of breath. Likely secondary to pneumonia. Has been treated with Levaquin IV. Continues to complain of spasms to low back. This has been a chronic issue. Sees pain management in [place]. Encourage to schedule appointment with them. Will discharge with one week worth of Zanaflex. Will continue Levaquin PO for 7 days and rescue inhaler as needed. Discussed follow up with PCP within one week. Has been afebrile and states that her breathing is at baseline from which has been over the past several months. Discharge discussed with: patient, family, nurse - Time Spent with Patient Total time spent providing and/or coordinating discharge services: Less than 30 minutes - Discharge Medications Home Medications: Desvenlafaxine Succinate [Pristiq] 50 mg PO DAILY 09/22/16 [History] Lisinopril [Zestril] 10 mg PO DAILY 09/22/16 [History] Potassium Chloride [Klor-Con 10] 10 meq PO BID 09/22/16 [History] Simvastatin [Zocor] 20 mg PO HS 09/22/16 [History] amLODIPine [Norvasc] 5 mg PO DAILY 09/22/16 [History] glipiZIDE [Glucotrol] 5 mg PO HS 09/22/16 [History] glipiZIDE [Glucotrol] 10 mg PO 0800 09/22/16 [History] metFORMIN [Glucophage] 500 mg PO BIDWM 09/22/16 [History] HYDROcodone/Acet 5/325 mg [Braggs 5-325 mg] 5 - 325 mg PO Q8H PRN 05/11/18 [History] Meloxicam [Mobic] 15 mg PO DAILY 05/11/18 [History] Cyclobenzaprine [Flexeril] 5 mg PO DAILY PRN tablet 05/13/18 [Rx] Allergies/Adverse Reactions: Allergy/AdvReac Type Severity Reaction Status Date / Time Sulfa (Sulfonamide Allergy Rash Verified 05/11/18 10:13 Antibiotics) Date of admission: 05/11/18 12:33 Primary care physician: Ashly Cho MD Consults: 05/12/18 10:42 Consult to Physical Therapy [CONS] Routine Comment: Evaluate, develop and implement POC Reason for Consult: weakness Does patient have active BEDREST order?: No Is patient medically & hemodynamically stable?: Yes Discharging clinician: Joni King Anticipated date of discharge: 05/13/18 - Constitutional Vitals: Temp Pulse Resp BP Pulse Ox 98.2 F 78 18 157/70 93 05/13/18 07:17 05/13/18 09:26 05/13/18 09:26 05/13/18 09:26 05/13/18 09:26 General appearance: Present: A&O X 3, pleasant, no acute distress, obese, answers questions appropriately - Head Head exam: Present: atraumatic, normocephalic - Eye Eye exam: Present: PERRL, conjuntiva pink, sclera anicteric Pupils: Present: PERRL - Neck Neck exam general surgery: Present: supple, trachea midline. Absent: lymphadenopathy - Respiratory Respiratory exam: Present: CTAB. Absent: accessory muscle use, rales, rhonchi, wheezes - Cardiovascular Cardiovascular exam: Present: RRR, +S1, +S2. Absent: diastolic murmur, gallop, rubs, systolic murmur - GI/Abdominal GI/Abdominal exam: Present: normal bowel sounds, soft, no peritoneal signs. Absent: distended, tenderness - Extremities Exam Extremities exam: Present: warm, radial pulses palpable and symmetrical. Absent: calf tenderness, cyanotic, pedal edema - Neurological Exam Neurological exam: Present: CN II-XII intact, oriented X3, no focal deficits. Absent: pronater drift, facial droop, speech deficit - Skin Skin exam: Present: dry, intact - Patient Status Disposition: Home, Self-Care Condition: Good Overall status at discharge: patient is progressing back to baseline - Discharge Instructions Follow Up With: Ashly Cho MD [Primary Care Provider] - - Diet and Activity Activity: as per physical therapy Diet: diabetic diet - VTE Reasons for not Prescribing Prophylaxis: Treatment not Indicated - Low risk for VTE
--- NOTE | 2018-05-14 17:12 | Electrocardiograph Report ---
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
--- NOTE | 2018-05-15 22:03 | Electrocardiograph Report ---
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
== END 2018-05-13 13:45 | disposition home or self-care (01) ==
LOC: EMEROOGRE 09:58 → INPGRE 09:58
PROVIDERS: ADMIT Internal Medicine

== ENCOUNTER 2019-09-07 19:50 | Observation (INO) ==
[2019-09-07] MEDS ORDERED: *HR* HYDROcodone/Acet 5/325 mg TABLET PO ONE (20:18)
[2019-09-07 20:32] LABS: Basophils # 0.1 K/mcL (0.0-0.2); Basophils % 0.4 %; Eosinophils # 0.1 K/mcL (0.0-0.6); Eosinophils % 0.8 %; Hematocrit 33.6 % (35.3-44.9); Hemoglobin 10.8 g/dL (11.5-15.4); Immature Granulocytes % 0.4 % (0-4); Lymphocytes # 1.9 K/mcL (0.6-4.6); Lymphocytes % 16.4 %; Mean Corpuscular HGB Conc 32.1 g/dL (31.6-35.5); Mean Corpuscular Hemoglobin 27.2 pg (28.0-33.3); Mean Corpuscular Volume 84.6 fL (83.0-100.0); Mean Platelet Volume 9.4 fL (9.4-12.4); Monocytes % 8.5 %; Neutrophils # 8.3 K/mcL (1.6-8.9); Platelet Count 240 K/mcL (140-400); Red Blood Count 3.97 M/mcL (3.82-4.97); Red Cell Distribution Width 14.6 % (11.5-14.5); Segmented Neutrophils % 73.5 %; White Blood Count 11.3 K/mcL (4.3-11.1)
[2019-09-07 20:48] LABS: Alanine Aminotransferase 17 Units/L (7-52); Albumin 3.7 g/dL (3.5-5.7); Albumin/Globulin Ratio 1.5 (1.1-2.2); Alkaline Phosphatase 64 Units/L (34-104); Aspartate Amino Transferase 20 Units/L (13-39); BUN/Creatinine Ratio 18 (6-26); Bilirubin,Total 0.7 mg/dL (0.3-1.0); Blood Urea Nitrogen 14 mg/dL (8-23); Calcium 8.6 mg/dL (8.6-10.3); Carbon Dioxide 27 mEq/L (23-29); Chloride 99 mEq/L (98-107); Globulin 2.5 g/dL (2.4-3.5); Glucose 198 mg/dL (70-105); Osmolality,Calculated 284 (280-300); Potassium 3.7 mEq/L (3.5-5.1); Sodium 134 mEq/L (136-145); Total Protein 6.2 g/dL (6.4-8.9); eGFR For African Americans > 60 (> 60); eGFR For Non-African Americans > 60 (> 60)
[2019-09-07] MEDS ORDERED: Naloxone 0.4 MG/ML INJ IVP PRN (22:15)
[2019-09-07] MEDS ORDERED: Acetaminophen 325 MG TABLET PO PRN (22:15)
[2019-09-07] MEDS ORDERED: *HR* OxyCODONE Immed Rel 5 MG TABLET PO PRN (22:15)
[2019-09-07] MEDS ORDERED: Ondansetron ODT 4 MG TAB.RAPDIS SL PRN (22:15)
[2019-09-07] MEDS ORDERED: *HR* Dextrose 50 % in Water (Vial) 50 ML VIAL IVP PRN (23:21)
[2019-09-07] MEDS ORDERED: Dextrose Gel 15 GM/37.5 ML TUBE PO PRN ×2 (23:21)
[2019-09-07] MEDS ORDERED: D5% in Water 1,000 ML IVC PRN (23:21)
[2019-09-08] MEDS: *HR* OxyCODONE/APAP 10/325 TABLET PO PRN ×5 (05:14→23:30)
[2019-09-08] MEDS ORDERED: NON-FORMULARY MEDICATION 1 EACH EACH (Dulaglutide [Trulicity] 1.5 MG) SQ SCH (09:00)
[2019-09-08] MEDS: *HR* Metformin 500 MG TABLET PO SCH ×2 (09:42→17:20)
[2019-09-08] MEDS: Furosemide 20 MG TABLET PO SCH (09:42)
[2019-09-08] MEDS: amLODIPine 5 MG TABLET PO SCH (09:42)
[2019-09-08] MEDS: Insulin LISPRO 300 UNITS/3 ML VIAL SQ SCH ×4 (09:43→23:30)
[2019-09-08] MEDS: Insulin DETEMIR 100 UNIT/ML X5UNITS SQ SCH (09:44)
[2019-09-08] MEDS: *HR* HYDROcodone/Acet 5/325 mg TABLET PO PRN ×2 (11:11→17:22)
[2019-09-08] MEDS: diazePAM 5 MG TABLET PO PRN ×2 (11:14→23:31)
[2019-09-09] MEDS: *HR* HYDROcodone/Acet 5/325 mg TABLET PO PRN ×3 (02:53→21:41)
[2019-09-09] MEDS: Furosemide 20 MG TABLET PO SCH (08:55)
[2019-09-09] MEDS: amLODIPine 5 MG TABLET PO SCH (08:55)
[2019-09-09] MEDS: Insulin DETEMIR 100 UNIT/ML X5UNITS SQ SCH (08:56)
[2019-09-09] MEDS: Insulin LISPRO 300 UNITS/3 ML VIAL SQ SCH ×4 (08:58→20:28)
[2019-09-09] MEDS: *HR* OxyCODONE/APAP 10/325 TABLET PO PRN ×2 (11:23→20:25)
[2019-09-09] MEDS ORDERED: Aspirin 81 MG TAB.CHEW PO ONE (21:48)
[2019-09-09] MEDS: diazePAM 5 MG TABLET PO PRN (22:24)
[2019-09-09 22:27] LABS: Magnesium 1.6 mg/dL (1.6-2.6)
[2019-09-09 22:29] LABS: Troponin I < 0.03 ng/mL (< 0.04)
[2019-09-09] MEDS ORDERED: Magnesium Oxide 400 MG TABLET PO ONE (22:45)
[2019-09-10] MEDS: *HR* HYDROcodone/Acet 5/325 mg TABLET PO PRN ×3 (04:33→18:28)
[2019-09-10] MEDS ORDERED: Nitroglycerin 0.4 MG TAB.SUBL SL PRN (04:59)
[2019-09-10] MEDS: Insulin LISPRO 300 UNITS/3 ML VIAL SQ SCH ×4 (09:20→23:25)
[2019-09-10] MEDS: Insulin DETEMIR 100 UNIT/ML X5UNITS SQ SCH (09:38)
[2019-09-10] MEDS: diazePAM 5 MG TABLET PO PRN ×2 (09:39→23:26)
[2019-09-10] MEDS: Furosemide 20 MG TABLET PO SCH (09:39)
[2019-09-10] MEDS: amLODIPine 5 MG TABLET PO SCH (09:40)
[2019-09-10 10:21] LABS: Estimated Average Glucose 192 mg/dl
[2019-09-10 11:58] LABS: BUN/Creatinine Ratio 22 (6-26); Blood Urea Nitrogen 20 mg/dL (8-23); Calcium 9.1 mg/dL (8.6-10.3); Carbon Dioxide 27 mEq/L (23-29); Chloride 97 mEq/L (98-107); Glucose 275 mg/dL (70-105); Magnesium 1.8 mg/dL (1.6-2.6); Osmolality,Calculated 288 (280-300); Potassium 4.4 mEq/L (3.5-5.1); Sodium 133 mEq/L (136-145); eGFR For African Americans > 60 (> 60); eGFR For Non-African Americans 60 (> 60)
[2019-09-10 12:13] LABS: Basophils % 0.3 %; Eosinophils # 0.4 K/mcL (0.0-0.6); Eosinophils % 3.6 %; Hematocrit 33.2 % (35.3-44.9); Hemoglobin 10.6 g/dL (11.5-15.4); Immature Granulocytes % 0.3 % (0-4); Lymphocytes # 1.4 K/mcL (0.6-4.6); Lymphocytes % 14.5 %; Mean Corpuscular HGB Conc 31.9 g/dL (31.6-35.5); Mean Corpuscular Hemoglobin 27.3 pg (28.0-33.3); Mean Corpuscular Volume 85.6 fL (83.0-100.0); Mean Platelet Volume 9.6 fL (9.4-12.4); Monocytes # 0.6 K/mcL (0.0-1.3); Neutrophils # 7.3 K/mcL (1.6-8.9); Platelet Count 356 K/mcL (140-400); Red Blood Count 3.88 M/mcL (3.82-4.97); Red Cell Distribution Width 14.8 % (11.5-14.5); Segmented Neutrophils % 75.3 %; White Blood Count 9.7 K/mcL (4.3-11.1)
[2019-09-10] MEDS: *HR* OxyCODONE/APAP 10/325 TABLET PO PRN ×2 (14:01→23:25)
[2019-09-10 15:20] LABS: Bilirubin,Urine Negative (Negative); Blood,Urine Small (Negative); Clarity,Urine Cloudy (Clear); Color,Urine Yellow (Yellow); Glucose,Urine (UA) Normal (Normal); Ketones,Urine Negative (Negative); Leukocyte Esterase,Urine Large (Negative); Nitrite,Urine Positive (Negative); PH,Urine 5.5 pH Units (5.0-8.0); Protein,Urine Negative (Neg-Trace); Specific Gravity,Urine 1.025 (1.010-1.025); Urobilinogen,Urine Normal (Normal)
[2019-09-10 15:33] LABS: Bacteria,Urine Many per hpf (None-Few); WBC,Urine TNTC per hpf (0-3)
[2019-09-11] MEDS: *HR* HYDROcodone/Acet 5/325 mg TABLET PO PRN ×2 (05:00→12:12)
[2019-09-11 06:11] LABS: Basophils % 0.5 %; Eosinophils # 0.5 K/mcL (0.0-0.6); Eosinophils % 6.3 %; Hematocrit 30.5 % (35.3-44.9); Hemoglobin 9.7 g/dL (11.5-15.4); Immature Granulocytes % 0.3 % (0-4); Lymphocytes # 1.9 K/mcL (0.6-4.6); Lymphocytes % 25.9 %; Mean Corpuscular HGB Conc 31.8 g/dL (31.6-35.5); Mean Corpuscular Hemoglobin 27.1 pg (28.0-33.3); Mean Corpuscular Volume 85.2 fL (83.0-100.0); Mean Platelet Volume 9.2 fL (9.4-12.4); Monocytes # 0.7 K/mcL (0.0-1.3); Monocytes % 8.7 %; Neutrophils # 4.4 K/mcL (1.6-8.9); Platelet Count 330 K/mcL (140-400); Red Blood Count 3.58 M/mcL (3.82-4.97); Red Cell Distribution Width 14.8 % (11.5-14.5); Segmented Neutrophils % 58.3 %; White Blood Count 7.5 K/mcL (4.3-11.1)
[2019-09-11 06:33] LABS: BUN/Creatinine Ratio 22 (6-26); Blood Urea Nitrogen 19 mg/dL (8-23); Calcium 8.9 mg/dL (8.6-10.3); Carbon Dioxide 29 mEq/L (23-29); Chloride 97 mEq/L (98-107); Glucose 162 mg/dL (70-105); Osmolality,Calculated 282 (280-300); Potassium 4.4 mEq/L (3.5-5.1); Sodium 133 mEq/L (136-145); eGFR For African Americans > 60 (> 60); eGFR For Non-African Americans > 60 (> 60)
[2019-09-11] MEDS: Insulin LISPRO 300 UNITS/3 ML VIAL SQ SCH ×2 (08:09→12:08)
[2019-09-11] MEDS: amLODIPine 5 MG TABLET PO SCH (08:12)
[2019-09-11] MEDS: Furosemide 20 MG TABLET PO SCH (08:12)
[2019-09-11] MEDS: Insulin DETEMIR 100 UNIT/ML X5UNITS SQ SCH (10:20)
[2019-09-11 13:27] VITALS: BP 146/72
== END 2019-09-11 14:35 | disposition other institution (70) ==
LOC: INPGRE 19:50 → EMEROOGRE 19:50 → SUATTDRO 22:18 → INPGRE 22:30
PROVIDERS: ADMIT Internal Medicine; ATTEND Family Medicine

== ENCOUNTER 2019-09-11 13:06 | Inpatient (IN) ==
[2019-09-11] MEDS ORDERED: diazePAM 5 MG TABLET PO PRN (16:05)
[2019-09-11] MEDS ORDERED: Dextrose Gel 15 GM/37.5 ML TUBE PO PRN ×2 (16:07)
[2019-09-11] MEDS ORDERED: *HR* Dextrose 50 % in Water (Syg) 50 ML SYRINGE IVP PRN (16:07)
[2019-09-11] MEDS ORDERED: D5% in Water 1,000 ML IVC PRN (16:07)
[2019-09-11] MEDS: *HR* Metformin 500 MG TABLET PO SCH (18:33)
[2019-09-11] MEDS: Insulin LISPRO 300 UNITS/3 ML VIAL SQ SCH ×2 (18:33→23:00)
[2019-09-11] MEDS: *HR* HYDROcodone/Acet 5/325 mg TABLET PO PRN (18:33)
[2019-09-11] MEDS ORDERED: Insulin DETEMIR 100 UNIT/ML per UNIT SQ SCH (21:00)
[2019-09-11] MEDS: diazePAM 5 MG TABLET PO PRN (23:00)
[2019-09-12 05:43] LABS: Basophils % 0.5 %; Eosinophils # 0.4 K/mcL (0.0-0.6); Eosinophils % 4.7 %; Hematocrit 31.9 % (35.3-44.9); Immature Granulocytes % 0.4 % (0-4); Lymphocytes # 2.1 K/mcL (0.6-4.6); Mean Corpuscular HGB Conc 31.3 g/dL (31.6-35.5); Mean Platelet Volume 9.3 fL (9.4-12.4); Monocytes # 0.7 K/mcL (0.0-1.3); Monocytes % 8.2 %; Neutrophils # 5.2 K/mcL (1.6-8.9); Platelet Count 356 K/mcL (140-400); Red Blood Count 3.71 M/mcL (3.82-4.97); Red Cell Distribution Width 14.6 % (11.5-14.5); Segmented Neutrophils % 61.2 %; White Blood Count 8.5 K/mcL (4.3-11.1)
[2019-09-12 05:58] LABS: BUN/Creatinine Ratio 25 (6-26); Blood Urea Nitrogen 21 mg/dL (8-23); Calcium 8.9 mg/dL (8.6-10.3); Carbon Dioxide 28 mEq/L (23-29); Chloride 98 mEq/L (98-107); Glucose 145 mg/dL (70-105); Osmolality,Calculated 284 (280-300); Potassium 4.4 mEq/L (3.5-5.1); Sodium 134 mEq/L (136-145); eGFR For African Americans > 60 (> 60); eGFR For Non-African Americans > 60 (> 60)
[2019-09-12] MEDS: *HR* Enoxaparin 40 MG/0.4 ML SYRINGE SQ SCH (06:20)
[2019-09-12] MEDS: *HR* HYDROcodone/Acet 5/325 mg TABLET PO PRN ×2 (06:20→14:16)
[2019-09-12] MEDS: Insulin LISPRO 300 UNITS/3 ML VIAL SQ SCH ×4 (08:34→21:02)
[2019-09-12] MEDS: Furosemide 20 MG TABLET PO SCH (08:34)
[2019-09-12] MEDS: amLODIPine 5 MG TABLET PO SCH (08:34)
[2019-09-12] MEDS: Aspirin Enteric Coated 325 MG Tablet PO SCH (08:34)
[2019-09-12] MEDS: *HR* Metformin 500 MG TABLET PO SCH ×2 (08:34→16:54)
[2019-09-12] MEDS: Insulin DETEMIR 100 UNIT/ML X5UNITS SQ SCH ×2 (09:21→21:10)
[2019-09-12] MEDS: Sennosides/Docusate Sodium TABLET PO SCH (21:02)
[2019-09-12] MEDS: diazePAM 5 MG TABLET PO PRN (21:10)
[2019-09-13] MEDS: *HR* HYDROcodone/Acet 5/325 mg TABLET PO PRN ×4 (01:39→20:56)
[2019-09-13] MEDS: *HR* Enoxaparin 40 MG/0.4 ML SYRINGE SQ SCH (04:59)
[2019-09-13] MEDS: Insulin LISPRO 300 UNITS/3 ML VIAL SQ SCH ×4 (08:13→20:50)
[2019-09-13] MEDS: Aspirin Enteric Coated 325 MG Tablet PO SCH (08:14)
[2019-09-13] MEDS: *HR* Metformin 500 MG TABLET PO SCH ×2 (08:14→16:24)
[2019-09-13] MEDS: Sennosides/Docusate Sodium TABLET PO SCH ×2 (08:14→19:44)
[2019-09-13] MEDS: amLODIPine 5 MG TABLET PO SCH (08:14)
[2019-09-13] MEDS: Furosemide 20 MG TABLET PO SCH (08:14)
[2019-09-13] MEDS: Insulin DETEMIR 100 UNIT/ML X5UNITS SQ SCH ×2 (08:20→20:48)
[2019-09-13] MEDS: diazePAM 5 MG TABLET PO PRN ×2 (11:46→19:44)
[2019-09-13] MEDS: Methocarbamol 500 MG TABLET PO PRN (16:19)
[2019-09-14] MEDS: *HR* HYDROcodone/Acet 5/325 mg TABLET PO PRN ×3 (03:43→21:25)
[2019-09-14] MEDS: *HR* Enoxaparin 40 MG/0.4 ML SYRINGE SQ SCH (05:52)
[2019-09-14] MEDS: Insulin LISPRO 300 UNITS/3 ML VIAL SQ SCH ×4 (07:41→20:30)
[2019-09-14] MEDS: Aspirin Enteric Coated 325 MG Tablet PO SCH (07:45)
[2019-09-14] MEDS: Furosemide 20 MG TABLET PO SCH (07:45)
[2019-09-14] MEDS: *HR* Metformin 500 MG TABLET PO SCH ×2 (07:45→16:46)
[2019-09-14] MEDS: diazePAM 5 MG TABLET PO PRN ×2 (07:46→16:45)
[2019-09-14] MEDS: Sennosides/Docusate Sodium TABLET PO SCH ×2 (07:46→20:35)
[2019-09-14] MEDS: amLODIPine 5 MG TABLET PO SCH (07:46)
[2019-09-14] MEDS: Insulin DETEMIR 100 UNIT/ML X5UNITS SQ SCH ×2 (07:52→20:30)
[2019-09-14] MEDS: Methocarbamol 500 MG TABLET PO PRN ×2 (11:36→20:30)
[2019-09-14] MEDS: *HR* HYDROcodone/Acet 10/325 mg TABLET PO PRN (13:55)
[2019-09-15] MEDS: *HR* HYDROcodone/Acet 5/325 mg TABLET PO PRN (05:41)
[2019-09-15] MEDS: *HR* Enoxaparin 40 MG/0.4 ML SYRINGE SQ SCH (05:42)
[2019-09-15] MEDS: Insulin LISPRO 300 UNITS/3 ML VIAL SQ SCH ×4 (07:49→21:08)
[2019-09-15] MEDS: Aspirin Enteric Coated 325 MG Tablet PO SCH (07:50)
[2019-09-15] MEDS: amLODIPine 5 MG TABLET PO SCH (07:50)
[2019-09-15] MEDS: *HR* Metformin 500 MG TABLET PO SCH ×2 (07:50→18:19)
[2019-09-15] MEDS: Sennosides/Docusate Sodium TABLET PO SCH ×3 (07:51→21:07)
[2019-09-15] MEDS: Furosemide 20 MG TABLET PO SCH (07:51)
[2019-09-15] MEDS: Insulin DETEMIR 100 UNIT/ML X5UNITS SQ SCH ×2 (09:28→21:08)
[2019-09-15] MEDS: *HR* HYDROcodone/Acet 10/325 mg TABLET PO PRN ×2 (14:23→21:08)
[2019-09-15] MEDS: diazePAM 5 MG TABLET PO PRN (21:07)
[2019-09-16 05:45] LABS: Hematocrit 31.9 % (35.3-44.9); Mean Corpuscular HGB Conc 31.3 g/dL (31.6-35.5); Mean Corpuscular Hemoglobin 26.9 pg (28.0-33.3); Mean Corpuscular Volume 85.8 fL (83.0-100.0); Platelet Count 390 K/mcL (140-400); Red Blood Count 3.72 M/mcL (3.82-4.97); Red Cell Distribution Width 14.6 % (11.5-14.5); White Blood Count 8.1 K/mcL (4.3-11.1)
[2019-09-16 05:59] LABS: Alanine Aminotransferase 10 Units/L (7-52); Albumin 3.8 g/dL (3.5-5.7); Albumin/Globulin Ratio 1.2 (1.1-2.2); Alkaline Phosphatase 65 Units/L (34-104); Aspartate Amino Transferase 10 Units/L (13-39); BUN/Creatinine Ratio 36 (6-26); Bilirubin,Total 0.2 mg/dL (0.3-1.0); Blood Urea Nitrogen 31 mg/dL (8-23); Calcium 9.4 mg/dL (8.6-10.3); Carbon Dioxide 28 mEq/L (23-29); Chloride 99 mEq/L (98-107); Globulin 3.2 g/dL (2.4-3.5); Glucose 108 mg/dL (70-105); Osmolality,Calculated 287 (280-300); Potassium 4.3 mEq/L (3.5-5.1); Sodium 135 mEq/L (136-145); eGFR For African Americans > 60 (> 60); eGFR For Non-African Americans > 60 (> 60)
[2019-09-16] MEDS: *HR* Enoxaparin 40 MG/0.4 ML SYRINGE SQ SCH (06:10)
[2019-09-16] MEDS: *HR* HYDROcodone/Acet 10/325 mg TABLET PO PRN ×3 (06:10→20:20)
[2019-09-16] MEDS: Insulin LISPRO 300 UNITS/3 ML VIAL SQ SCH ×4 (07:30→20:20)
[2019-09-16] MEDS: Furosemide 20 MG TABLET PO SCH (08:43)
[2019-09-16] MEDS: Insulin DETEMIR 100 UNIT/ML X5UNITS SQ SCH ×2 (08:43→20:20)
[2019-09-16] MEDS: *HR* Metformin 500 MG TABLET PO SCH ×2 (08:43→16:51)
[2019-09-16] MEDS: Aspirin Enteric Coated 325 MG Tablet PO SCH (08:44)
[2019-09-16] MEDS: amLODIPine 5 MG TABLET PO SCH (08:44)
[2019-09-16] MEDS: Sennosides/Docusate Sodium TABLET PO SCH ×2 (08:44→20:19)
[2019-09-16] MEDS: Methocarbamol 500 MG TABLET PO PRN (11:07)
[2019-09-17] MEDS: *HR* Enoxaparin 40 MG/0.4 ML SYRINGE SQ SCH (05:20)
[2019-09-17] MEDS: Methocarbamol 500 MG TABLET PO PRN ×3 (05:24→19:46)
[2019-09-17] MEDS: *HR* Metformin 500 MG TABLET PO SCH ×2 (09:14→16:05)
[2019-09-17] MEDS: amLODIPine 5 MG TABLET PO SCH (09:14)
[2019-09-17] MEDS: *HR* HYDROcodone/Acet 10/325 mg TABLET PO PRN ×3 (09:14→22:30)
[2019-09-17] MEDS: Insulin LISPRO 300 UNITS/3 ML VIAL SQ SCH ×4 (09:14→22:28)
[2019-09-17] MEDS: Aspirin Enteric Coated 325 MG Tablet PO SCH (09:14)
[2019-09-17] MEDS: Furosemide 20 MG TABLET PO SCH (09:14)
[2019-09-17] MEDS: Sennosides/Docusate Sodium TABLET PO SCH ×2 (09:15→19:47)
[2019-09-17] MEDS: Insulin DETEMIR 100 UNIT/ML X5UNITS SQ SCH ×2 (12:32→22:30)
[2019-09-18] MEDS: *HR* Enoxaparin 40 MG/0.4 ML SYRINGE SQ SCH (05:17)
[2019-09-18] MEDS: *HR* HYDROcodone/Acet 10/325 mg TABLET PO PRN ×3 (05:21→19:53)
[2019-09-18] MEDS: Insulin LISPRO 300 UNITS/3 ML VIAL SQ SCH ×4 (08:59→19:52)
[2019-09-18] MEDS: Furosemide 20 MG TABLET PO SCH (09:10)
[2019-09-18] MEDS: Methocarbamol 500 MG TABLET PO PRN ×2 (09:10→17:27)
[2019-09-18] MEDS: Sennosides/Docusate Sodium TABLET PO SCH ×2 (09:10→19:52)
[2019-09-18] MEDS: Aspirin Enteric Coated 325 MG Tablet PO SCH (09:10)
[2019-09-18] MEDS: *HR* Metformin 500 MG TABLET PO SCH ×2 (09:11→17:13)
[2019-09-18] MEDS: amLODIPine 5 MG TABLET PO SCH (09:11)
[2019-09-18] MEDS: Insulin DETEMIR 100 UNIT/ML X5UNITS SQ SCH ×2 (09:33→19:53)
[2019-09-18] MEDS: diazePAM 5 MG TABLET PO PRN (12:59)
[2019-09-19] MEDS: *HR* HYDROcodone/Acet 10/325 mg TABLET PO PRN ×2 (05:01→12:00)
[2019-09-19] MEDS: *HR* Enoxaparin 40 MG/0.4 ML SYRINGE SQ SCH (05:33)
[2019-09-19 07:16] VITALS: BP 133/67
[2019-09-19] MEDS: Furosemide 20 MG TABLET PO SCH (09:26)
[2019-09-19] MEDS: Aspirin Enteric Coated 325 MG Tablet PO SCH (09:26)
[2019-09-19] MEDS: *HR* Metformin 500 MG TABLET PO SCH (09:27)
[2019-09-19] MEDS: Sennosides/Docusate Sodium TABLET PO SCH (09:27)
[2019-09-19] MEDS: Insulin LISPRO 300 UNITS/3 ML VIAL SQ SCH (09:27)
[2019-09-19] MEDS: amLODIPine 5 MG TABLET PO SCH (09:27)
[2019-09-19] MEDS: Methocarbamol 500 MG TABLET PO PRN (09:32)
== END 2019-09-19 12:03 | disposition home or self-care (01) | DRG 560 ==
LOC: INPGRE 14:43
PROVIDERS: ADMIT Family Medicine; ATTEND Family Medicine

== ENCOUNTER 2019-09-22 09:00 | Observation (INO) ==
[2019-09-22] MEDS ORDERED: Morphine Sulfate 2 MG/ML SYRINGE ONE (09:17)
[2019-09-22] MEDS ORDERED: Morphine Sulfate 2 MG/ML SYRINGE IVP ONE (09:17)
[2019-09-22] MEDS ORDERED: Ondansetron 4 MG/2 ML VIAL ONE (09:17)
[2019-09-22] MEDS ORDERED: Ondansetron 4 MG/2 ML VIAL IVP ONE (09:17)
[2019-09-22] MEDS ORDERED: Ketorolac 30 MG/ML VIAL IVP ONE (09:51)
[2019-09-22] MEDS ORDERED: Orphenadrine 60 MG/2 ML VIAL IVP ONE (09:51)
[2019-09-22] MEDS ORDERED: methylPREDNISolone 125 MG/2 ML VIAL IVP ONE (09:51)
[2019-09-22] MEDS ORDERED: *HR* HYDROmorphone (PF) 1 MG/ML SYRINGE IVP ONE (10:28)
[2019-09-22 10:57] LABS: Basophils # 0.1 K/mcL (0.0-0.2); Basophils % 0.4 %; Eosinophils # 0.2 K/mcL (0.0-0.6); Eosinophils % 1.5 %; Hematocrit 35.9 % (35.3-44.9); Hemoglobin 11.1 g/dL (11.5-15.4); Immature Granulocytes % 0.7 % (0-4); Lymphocytes # 1.8 K/mcL (0.6-4.6); Lymphocytes % 11.8 %; Mean Corpuscular HGB Conc 30.9 g/dL (31.6-35.5); Mean Corpuscular Hemoglobin 26.8 pg (28.0-33.3); Mean Corpuscular Volume 86.7 fL (83.0-100.0); Mean Platelet Volume 9.8 fL (9.4-12.4); Monocytes # 0.9 K/mcL (0.0-1.3); Monocytes % 5.9 %; Platelet Count 448 K/mcL (140-400); Red Blood Count 4.14 M/mcL (3.82-4.97); Red Cell Distribution Width 14.9 % (11.5-14.5); Segmented Neutrophils % 79.7 %
[2019-09-22 11:14] LABS: Alanine Aminotransferase 11 Units/L (7-52); Albumin 4.2 g/dL (3.5-5.7); Albumin/Globulin Ratio 1.2 (1.1-2.2); Alkaline Phosphatase 91 Units/L (34-104); Aspartate Amino Transferase 12 Units/L (13-39); BUN/Creatinine Ratio 27 (6-26); Bilirubin,Total 0.4 mg/dL (0.3-1.0); Blood Urea Nitrogen 28 mg/dL (8-23); Calcium 9.9 mg/dL (8.6-10.3); Carbon Dioxide 27 mEq/L (23-29); Chloride 99 mEq/L (98-107); Globulin 3.6 g/dL (2.4-3.5); Glucose 145 mg/dL (70-105); Osmolality,Calculated 294 (280-300); Potassium 4.7 mEq/L (3.5-5.1); Sodium 138 mEq/L (136-145); Total Protein 7.8 g/dL (6.4-8.9); eGFR For African Americans > 60 (> 60); eGFR For Non-African Americans 52 (> 60)
[2019-09-22 12:06] LABS: Bilirubin,Urine Negative (Negative); Blood,Urine Negative (Negative); Clarity,Urine Clear (Clear); Color,Urine Yellow (Yellow); Glucose,Urine (UA) Normal (Normal); Ketones,Urine Negative (Negative); Leukocyte Esterase,Urine Trace (Negative); Nitrite,Urine Negative (Negative); Protein,Urine Negative (Neg-Trace); Urobilinogen,Urine Normal (Normal)
[2019-09-22 12:20] LABS: Squamous Epithelial Cell,Urine Many per lpf (None-Few); WBC,Urine 0-3 per hpf (0-3)
[2019-09-22] MEDS ORDERED: *HR* HYDROcodone/Acet 5/325 mg TABLET PO PRN (16:34)
[2019-09-22] MEDS ORDERED: MOM Conc 10 ML UD.LIQ PO PRN (16:43)
[2019-09-22] MEDS ORDERED: Ibuprofen 400 MG TABLET PO PRN (16:43)
[2019-09-22] MEDS ORDERED: Mag Hydrox/Al Hydrox/Simeth 30 ML UDC PO PRN (16:43)
[2019-09-22] MEDS ORDERED: Naloxone 0.4 MG/ML INJ IVP PRN (16:43)
[2019-09-22] MEDS ORDERED: Ondansetron ODT 4 MG TAB.RAPDIS SL PRN (16:43)
[2019-09-22] MEDS ORDERED: D5% in Water 1,000 ML IVC PRN (16:46)
[2019-09-22] MEDS ORDERED: *HR* Dextrose 50 % in Water (Vial) 50 ML VIAL IVP PRN (16:46)
[2019-09-22] MEDS ORDERED: Dextrose Gel 15 GM/37.5 ML TUBE PO PRN ×2 (16:46)
[2019-09-22] MEDS ORDERED: TRULICITY 1.5 MG SQ SCH (17:00)
[2019-09-22] MEDS: *HR* HYDROcodone/Acet 5/325 mg TABLET PO PRN ×2 (17:22→21:22)
[2019-09-22] MEDS: Ketorolac 15 MG/ML VIAL IVP PRN ×2 (17:22→23:12)
[2019-09-22] MEDS: *HR* Metformin 500 MG TABLET PO SCH (17:22)
[2019-09-22] MEDS: Acetaminophen 325 MG TABLET PO PRN (19:27)
[2019-09-22] MEDS: Insulin LISPRO 300 UNITS/3 ML VIAL SQ SCH (21:34)
[2019-09-23] MEDS: *HR* HYDROcodone/Acet 5/325 mg TABLET PO PRN ×3 (01:26→15:37)
[2019-09-23] MEDS ORDERED: *HR* HYDROmorphone (PF) 1 MG/ML SYRINGE IVP PRN (02:51)
[2019-09-23 05:36] LABS: Basophils % 0.3 %; Eosinophils % 0.1 %; Hematocrit 34.2 % (35.3-44.9); Hemoglobin 10.7 g/dL (11.5-15.4); Immature Granulocytes % 0.6 % (0-4); Lymphocytes % 13.1 %; Mean Corpuscular HGB Conc 31.3 g/dL (31.6-35.5); Mean Corpuscular Hemoglobin 26.6 pg (28.0-33.3); Mean Corpuscular Volume 84.9 fL (83.0-100.0); Mean Platelet Volume 9.5 fL (9.4-12.4); Monocytes # 1.1 K/mcL (0.0-1.3); Monocytes % 7.8 %; Platelet Count 457 K/mcL (140-400); Red Blood Count 4.03 M/mcL (3.82-4.97); Red Cell Distribution Width 14.6 % (11.5-14.5); Segmented Neutrophils % 78.1 %; White Blood Count 14.1 K/mcL (4.3-11.1)
[2019-09-23 05:37] LABS: Lymphocytes # 1.9 K/mcL (0.6-4.6)
[2019-09-23 05:53] LABS: Albumin 3.9 g/dL (3.5-5.7); Albumin/Globulin Ratio 1.2 (1.1-2.2); Bilirubin,Total 0.3 mg/dL (0.3-1.0); Calcium 9.6 mg/dL (8.6-10.3); Globulin 3.3 g/dL (2.4-3.5); Magnesium 2.3 mg/dL (1.6-2.6); Potassium 4.7 mEq/L (3.5-5.1); Total Protein 7.2 g/dL (6.4-8.9)
[2019-09-23] MEDS: *HR* Enoxaparin 40 MG/0.4 ML SYRINGE SQ SCH (06:08)
[2019-09-23] MEDS: Furosemide 20 MG TABLET PO SCH (08:03)
[2019-09-23] MEDS: amLODIPine 5 MG TABLET PO SCH (08:03)
[2019-09-23] MEDS: *HR* Metformin 500 MG TABLET PO SCH ×2 (08:03→16:56)
[2019-09-23] MEDS: Insulin LISPRO 300 UNITS/3 ML VIAL SQ SCH ×4 (08:03→21:03)
[2019-09-23] MEDS ORDERED: Aspirin Enteric Coated 325 MG Tablet PO SCH (09:00)
[2019-09-23] MEDS ORDERED: Ketorolac 15 MG/ML VIAL IVP PRN (09:15)
[2019-09-23] MEDS: Insulin DETEMIR 100 UNIT/ML X5UNITS SQ SCH (09:58)
[2019-09-24] MEDS: *HR* HYDROcodone/Acet 5/325 mg TABLET PO PRN ×5 (01:35→21:32)
[2019-09-24] MEDS: *HR* Enoxaparin 40 MG/0.4 ML SYRINGE SQ SCH (06:10)
[2019-09-24] MEDS: Insulin LISPRO 300 UNITS/3 ML VIAL SQ SCH ×4 (09:09→22:33)
[2019-09-24] MEDS: Furosemide 20 MG TABLET PO SCH (09:22)
[2019-09-24] MEDS: *HR* Metformin 500 MG TABLET PO SCH ×2 (09:22→17:31)
[2019-09-24] MEDS: amLODIPine 5 MG TABLET PO SCH (09:22)
[2019-09-24] MEDS: Insulin DETEMIR 100 UNIT/ML X5UNITS SQ SCH (09:23)
[2019-09-24] MEDS: 0.9 % Sodium Chloride 1,000 ML IVC SCH ×2 (11:34→21:31)
[2019-09-24 11:59] LABS: Basophils # 0.1 K/mcL (0.0-0.2); Basophils % 0.9 %; Eosinophils # 0.2 K/mcL (0.0-0.6); Eosinophils % 2.5 %; Hematocrit 35.6 % (35.3-44.9); Hemoglobin 10.9 g/dL (11.5-15.4); Immature Granulocytes % 0.5 % (0-4); Lymphocytes # 1.7 K/mcL (0.6-4.6); Lymphocytes % 19.7 %; Mean Corpuscular HGB Conc 30.6 g/dL (31.6-35.5); Mean Corpuscular Hemoglobin 26.9 pg (28.0-33.3); Mean Corpuscular Volume 87.9 fL (83.0-100.0); Mean Platelet Volume 9.8 fL (9.4-12.4); Monocytes # 0.7 K/mcL (0.0-1.3); Platelet Count 409 K/mcL (140-400); Red Blood Count 4.05 M/mcL (3.82-4.97); Red Cell Distribution Width 14.6 % (11.5-14.5); Segmented Neutrophils % 68.4 %; White Blood Count 8.7 K/mcL (4.3-11.1)
[2019-09-24 12:19] LABS: BUN/Creatinine Ratio 36 (6-26); Blood Urea Nitrogen 34 mg/dL (8-23); Calcium 9.6 mg/dL (8.6-10.3); Carbon Dioxide 29 mEq/L (23-29); Chloride 100 mEq/L (98-107); Glucose 140 mg/dL (70-105); Osmolality,Calculated 296 (280-300); Potassium 4.4 mEq/L (3.5-5.1); Sodium 138 mEq/L (136-145); eGFR For African Americans > 60 (> 60); eGFR For Non-African Americans 58 (> 60)
[2019-09-24] MEDS: Nitrofurantoin (BID) 100 MG CAPSULE PO SCH (17:31)
[2019-09-25] MEDS: *HR* Enoxaparin 40 MG/0.4 ML SYRINGE SQ SCH (04:05)
[2019-09-25] MEDS: *HR* HYDROcodone/Acet 5/325 mg TABLET PO PRN ×3 (04:05→13:24)
[2019-09-25] MEDS: Insulin LISPRO 300 UNITS/3 ML VIAL SQ SCH ×2 (07:35→11:46)
[2019-09-25] MEDS: Furosemide 20 MG TABLET PO SCH (08:16)
[2019-09-25] MEDS: 0.9 % Sodium Chloride 1,000 ML IVC SCH (08:17)
[2019-09-25] MEDS: *HR* Metformin 500 MG TABLET PO SCH (08:17)
[2019-09-25] MEDS: Nitrofurantoin (BID) 100 MG CAPSULE PO SCH (08:17)
[2019-09-25] MEDS: amLODIPine 5 MG TABLET PO SCH (08:18)
[2019-09-25] MEDS: Insulin DETEMIR 100 UNIT/ML X5UNITS SQ SCH (09:37)
[2019-09-25 11:37] VITALS: BP 138/73
[2019-09-25] MEDS: Acetaminophen 325 MG TABLET PO PRN (11:46)
[2019-09-25] MEDS ORDERED: Ketorolac 60 MG/2 ML VIAL IM ONE (15:26)
== END 2019-09-25 17:12 ==
LOC: EMEROOGRE 09:00 → INPGRE 09:00
PROVIDERS: ADMIT Family Medicine; ATTEND Family Medicine